=== PATIENT | female | born 1950 | race Caucasian/White ===

== ENCOUNTER 2016-09-29 12:00 | Emergency (ER) | payer OTHER ==
[~2016-09-29] VITALS: Ht 167.6 cm; Wt 100.0 kg
[~2016-09-29 12:00] MED LIST: ACET-749 PO; ADVIN25/60 INH; ALBU1AER9 INH; ARTIOIN OP; CLON0.5T3 PO; ESTR1CRE TOP; FAMO20TA11 PO; INSU100I2 SQ; IPRASOL4 INH; LEVO50TA6 PO; LEVO75TA5 PO; MRLP17 PO; MULT-506 PO; ONDA4TAB46 PO; OXGN; PHEN-876 PO; RSTOPS OP; SIME125C11 PO
[2016-09-29 12:10] VITALS: TEMP 36.6; Ht 167.6 cm; Wt 100.0 kg
[2016-09-29] MEDS ORDERED: RABE20TA5 PO (12:20)
[2016-09-29] MEDS ORDERED: SODIUM CHLORIDE 0.9% 1000ML 1,000 ML IV STA (12:27)
[2016-09-29] MEDS ORDERED: ONDANSETRON INJ 2 MG/ML 2 ML VIAL IV STA (12:27)
--- NOTE | 2016-09-29 12:39 | EMERGENCY ROOM VISIT NOTE ---
History Report prepared by Bhavna: Bob San Under the Supervision of: Dr. Rc Barron D.O. First contact with patient: 12:23 Chief Complaint: HEADACHE Stated Complaint: HEADACHE History of Present Illness The patient is a 66 year old female who presents to the Emergency Room with complaints of a persistent headache that started around a week ago. She complains of multiple other problems, including neck stiffness, neck pain, left shoulder pain, swollen eyes, nausea, bloody diarrhea, and left flank pain. She also complains of arm tingling, arm numbness, dizziness, shortness of breath, and coughing. The patient was in this hospital recently and it was found that she has a nodule in her stomach as well as a transverse colon tumor. She was scheduled to see Dr. Morris (GI) today but she could not drive due to her symptoms. The patient saw her primary care physician recently, and the patient says the physician was not worried about her symptoms. She is on pain medications everyday for chronic pain as well as for chronic numbness in both legs and feet. She has limited balance and she has chronic burning inside her ears. The patient has stenosis. She is diabetic and has asthma. The patient has a history of a hysterectomy. Source of History: patient Onset: A week ago Position: head Timing: other (persistent) Associated Symptoms: + SOB, + abdominal pain (left flank pain), + cough, + diarrhea, + hematochezia, + nausea, + neck pain (and neck stiffness), + numbness (arm numbness and chronic leg/foot numbness) Note: Associated symptoms: Arm tingling, dizziness. Review of Systems See HPI for pertinent positives & negatives. A total of 10 systems reviewed and were otherwise negative. Past Medical & Surgical Medical Problems: (1) Asthma (2) DM2 (diabetes mellitus, type 2) (3) GERD (gastroesophageal reflux disease) (4) Hypothyroidism (5) Left leg weakness (6) MVP (mitral valve prolapse) (7) Obesity (8) TAMMI (obstructive sleep apnea) (9) Stroke-like symptom (10) Trigeminal neuralgia Surgical Problems: (1) H/O cardiac catheterization (2) H/O hernia repair (3) History of carpal tunnel surgery (4) S/P hysterectomy Family History Diabetes mellitus SISTER FH: aneurysm FATHER FH: cancer MOTHER Heart disease FATHER MOTHER SISTER Hypertension BROTHER Stroke MOTHER Social History Smoking Status: Former Smoker Alcohol Use: none Drug Use: none Marital Status: single Housing Status: lives alone Occupation Status: retired Current/Historical Medications Scheduled Acetaminophen/Codeine (Tylenol W/Codeine #3), 1 TAB PO BID Albuterol (Proair Hfa), 2 PUFFS INH Q4HR PRN Artificial Tears Oph Oint (Lacri-Lube Sop Oph Oint), 0.25-0.5 INCH OP QID Fluticasone Prop/Salmeterol (Advair Diskus 250/50 60 Dose), 1 PUFF INH BID Insulin Lispro (Human) (Humalog Kwikpen), 15-20 UNITS SQ AC Levothyroxine Sodium (Levothyroxine Sodium), 1 TAB PO SuMoWeFrSa Levothyroxine Sodium (Levothyroxine Sodium), 1 TAB PO TuTh Multivitamin (Multivitamin), 1 TAB PO QPM Oxygen (Oxygen), 2 LITERS NA PRN Polyethylene Glycol (Miralax *), 17 GM PO QAM Rabeprazole Sodium (Aciphex), Unknown Dose PO DAILY Scheduled PRN Clonazepam (Klonopin), 1 TAB PO BID PRN for Pain Cyclosporine (Restasis Eye Drops), 1 DROP OP BID PRN for Estrogens, Conjugated Vaginal (Premarin), 0.5 GM TOP QAM PRN for PRN Ipratropium-Albuterol (Duoneb), 1 TREATMENT INH QID PRN for SOB/Wheezing Ondansetron Hcl (Zofran), 4 MG PO Q8H PRN for Nausea Phenazopyridine HCl (Pyridium), 200 MG PO TID PRN for PRN Simethicone (Simethicone), 125 MG PO QID PRN for gas Allergies Coded Allergies: Meloxicam (Verified Allergy, Severe, RASH/WHEEZING/ITCHING/ "FELT I COULDN 'T BREATH", 09/29/16) Niacin (Verified Allergy, Severe, "WHEEZING/RASH/RUSHED TO ER AND GIVEN SHOT", 09/29/16) Silicone (Verified Allergy, Severe, FACIAL SWELLING AND WHEEZING, 09/29/16) Doxycycline (Verified Allergy, Mild, N/V AND PAIN, 09/29/16) Latex (Verified Allergy, Mild, SLIGHT WHEEZING, 09/29/16) Adhesives (Verified Allergy, Unknown, BANDAIDS-RED RASH, 09/29/16) Duloxetine (Verified Adverse Reaction, Intermediate, JOINT PAIN AND ELEVATED BLOOD SUGAR, 09/29/16) Tetracycline (Verified Adverse Reaction, Intermediate, VOMIT/PASS OUT-PT DENIES, 09/29/16) Aspirin (Verified Adverse Reaction, Mild, nausea, vomitting, abd pain, 09/29) Buspirone (Verified Adverse Reaction, Mild, N/V/PAIN-PT DENIES, 09/29/16) NSAIDs (Verified Adverse Reaction, Mild, GI UPSET/VOMITING, 09/29/16) Pregabalin (Verified Adverse Reaction, Mild, PAIN AND NAUSEA, 09/29/16) Rosuvastatin (Verified Adverse Reaction, Mild, JOINT PAIN VOMIT, 09/29/16) Simvastatin (Verified Adverse Reaction, Mild, JOINT PAIN, 09/29/16) Statins (Verified Adverse Reaction, Unknown, MYALGIA AND JOINT PAINS, ) Physical Exam Vital Signs Date Time Temp Pulse Resp B/P Pulse Ox O2 Delivery O2 Flow Rate FiO2 09/29/16 16:03 76 20 138/78 99 Room Air 09/29/16 14:10 76 142/77 95 09/29/16 13:30 20 09/29/16 12:57 77 09/29/16 12:29 71 152/87 98 09/29/16 12:10 36.6 75 18 139/72 96 Room Air Physical Exam GENERAL: Patient is awake, alert, and in no acute distress. Patient is resting comfortably and showing no signs of anxiety EYES: The conjunctivae are clear. The pupils are round and reactive. EARS, NOSE, MOUTH AND THROAT: The nose is without any evidence of any deformity. Mucous membranes are moist tongue is midline NECK: The neck is nontender and supple. RESPIRATORY: Normal respiratory effort is noted there is no evidence of wheezing rhonchi or rales CARDIOVASCULAR: Regular rate and rhythm noted there no murmurs rubs or gallops normal S1 normal S2 GASTROINTESTINAL: The abdomen is soft. Bowel sounds are present in all quadrants. Abdomen is nontender MUSCULOSKELETAL/EXTREMITIES: There is no evidence of gross deformity full range of motion is noted in the hips and shoulders SKIN: There is no obvious evidence of any rash. There are no petechiae, pallor or cyanosis noted. NEUROLOGIC: Patient is awake alert and oriented x3 strength is symmetric patellar reflexes are 2+ bilaterally Medical Decision & Procedures ER Provider Diagnostic Interpretation: X ray results and stated below per my interpretation and radiology interpretation. Other radiology results per my review and radiologist interpretation: CT HEAD WITHOUT CONTRAST (CT) CLINICAL HISTORY: GANDHI COMPARISON STUDY: 05/14/2016 TECHNIQUE: Axial CT of the brain is performed from the vertex to the skull base. IV contrast was not administered for this examination. CT DOSE: 537.48 mGy.cm FINDINGS: No intra or extra-axial mass lesions are visualized. There is no CT evidence of acute cortical infarction. There is no evidence of midline shift. There is no acute hemorrhage. No calvarial fractures are visualized. There are minimal white matter hypodensities likely on a small vessel basis. There is no evidence of pathologic ventricular dilatation. There is no evidence of acute sinusitis IMPRESSION: No acute intracranial findings Electronically signed by: Mateo Gonzalez M.D. 09/29/2016 1:02 PM PA CHEST RADIOGRAPH AND UPRIGHT AND SUPINE AP RADIOGRAPHS OF THE ABDOMEN CLINICAL HISTORY: Abdominal pain. COMPARISON STUDY: Chest radiograph May 14, [address] of the abdomen and pelvis July 24, 2016 FINDINGS: Lung lungs are normal. Lungs are clear. There is no pneumothorax or pleural effusion. Cardiac size is normal. Mediastinal contours are normal. There is no free air. Bowel gas pattern is normal. IMPRESSION: 1. No free air or evidence of bowel obstruction. 2. No acute cardiopulmonary findings. Electronically signed by: Alec Pratt M.D. 09/29/2016 1:52 PM Laboratory Results 09/29/16 12:44 Red Blood Count 4.40, Mean Corpuscular Volume 94.3, Mean Corpuscular Hemoglobin 31.4, Mean Corpuscular Hemoglobin Concent 33.3, Mean Platelet Volume 10.4, Neutrophils (%) (Auto) 67.0, Lymphocytes (%) (Auto) 24.9, Monocytes (%) (Auto) 5.8, Eosinophils (%) (Auto) 1.6, Basophils (%) (Auto) 0.6, Neutrophils # (Auto) 4.50, Lymphocytes # (Auto) 1.67, Monocytes # (Auto) 0.39, Eosinophils # (Auto) 0.11, Basophils # (Auto) 0.04 09/29/16 12:44 Test 09/29/16 12:44 09/29/16 14:12 White Blood Count 6.72 K/uL (4.8-10.8) Red Blood Count 4.40 M/uL (4.2-5.4) Hemoglobin 13.8 g/dL (12.0-16.0) Hematocrit 41.5 % (37-47) Mean Corpuscular Volume 94.3 fL (80-100) Mean Corpuscular Hemoglobin 31.4 pg (25-34) Mean Corpuscular Hemoglobin Concent 33.3 g/dl (32-36) Platelet Count 230 K/uL (130-400) Mean Platelet Volume 10.4 fL (7.4-10.4) Neutrophils (%) (Auto) 67.0 % Lymphocytes (%) (Auto) 24.9 % Monocytes (%) (Auto) 5.8 % Eosinophils (%) (Auto) 1.6 % Basophils (%) (Auto) 0.6 % Neutrophils # (Auto) 4.50 K/uL (1.4-6.5) Lymphocytes # (Auto) 1.67 K/uL (1.2-3.4) Monocytes # (Auto) 0.39 K/uL (0.11-0.59) Eosinophils # (Auto) 0.11 K/uL (0-0.5) Basophils # (Auto) 0.04 K/uL (0-0.2) RDW Standard Deviation 48.1 fL (36.4-46.3) RDW Coefficient of Variation 13.9 % (11.5-14.5) Immature Granulocyte % (Auto) 0.1 % Immature Granulocyte # (Auto) 0.01 K/uL (0.00-0.02) Erythrocyte Sedimentation Rate 18 mm/hr (0-21) Prothrombin Time 11.1 SECONDS (9.0-12.0) Prothromb Time International Ratio 1.0 (0.9-1.1) Activated Partial Thromboplast Time 27.8 SECONDS (21.0-31.0) Partial Thromboplastin Ratio 1.1 Anion Gap 9.0 mmol/L (3-11) Est Creatinine Clear Calc Drug Dose 98.7 ml/min Estimated GFR () 105.9 Estimated GFR (Non- 91.4 BUN/Creatinine Ratio 10.8 (10-20) Calcium Level 8.9 mg/dl (8.5-10.1) Total Bilirubin 0.4 mg/dl (0.2-1) Direct Bilirubin < 0.1 mg/dl (0-0.2) Aspartate Amino Transf (AST/SGOT) 15 U/L (15-37) Alanine Aminotransferase (ALT/SGPT) 17 U/L (12-78) Alkaline Phosphatase 55 U/L (45-117) Total Creatine Kinase 53 U/L (26-192) Creatine Kinase MB < 0.5 ng/ml (0.5-3.6) Creatine Kinase MB Ratio (0-3.0) Troponin I < 0.015 ng/ml (0-0.045) C-Reactive Protein 0.77 mg/dl (0-0.29) Total Protein 6.6 gm/dl (6.4-8.2) Albumin 3.1 gm/dl (3.4-5.0) Lipase 188 U/L (73-393) Influenza Type A Antigen Neg for Influ A (NEG) Influenza Type B Antigen Neg for Influ B (NEG) Urine Color YELLOW Urine Appearance CLEAR (CLEAR) Urine pH 5.5 (4.5-7.5) Urine Specific [place] 1.000 (1.000-1.030) Urine Protein NEG (NEG) Urine Glucose (UA) NEG (NEG) Urine Ketones NEG (NEG) Urine Occult Blood NEG (NEG) Urine Nitrite NEG (NEG) Urine Bilirubin NEG (NEG) Urine Urobilinogen NEG (NEG) Urine Leukocyte Esterase NEG (NEG) Laboratory results per my review. Medications Administered Medications (Trade) Dose Ordered Sig/Tracy Route Start Time Stop Time Status Last Admin Dose Admin Sodium Chloride (Nss 1000ml) 1,000 ml @ 999 mls/hr Q1H1M STAT IV 09/29/16 12:27 09/29/16 13:27 DC 09/29/16 13:29 999 MLS/HR Ondansetron HCl (Zofran Inj) 4 mg NOW STAT IV 09/29/16 12:27 09/29/16 12:29 DC 09/29/16 13:30 4 MG ECG Indication: other (headache) Rate (beats per minute): 70 Rhythm: normal sinus Findings: 1st degree AV block, no ectopy, other (no acute ST segment abnormalities) Change: no significant change (from July 24 2016) ED Course 1225: The patient was evaluated in room B12B. A complete history and physical examination were performed. 1227: Ordered Zofran Inj 4 mg IV, NSS 1000 ml @ 999 mls/hr IV. 1539: I reevaluated the patient and she is resting comfortably. The patient verbally expressed agreement and understanding of the treatment plan. The patient will be discharged. Medical Decision Headache: Intracranial hemorrhage, intracranial mass, migraine headache, tension headache , sinusitis, meningitis Nursing notes reviewed. The patient is a 66-year-old female who presented to the emergency department for an evaluation. The patient had multiple complaints including headache and difficulty breathing. She also had flulike symptoms but also complained of abdominal pain chest pain and difficulty breathing. It was very difficult to ascertain which complaints were new and which complaints were old. The patient was treated with IV fluids and antiemetics in the emergency department. I discussed the patient's laboratory and radiographic studies with her. No definite cause for the patient's complaints could be found. She was encouraged to rest and avoid any strenuous activity. She was also encouraged to continue all medications as prescribed. She was also encouraged to follow-up with her primary care physician as it is possible for reevaluation but return to the emergency department immediately if symptoms change worsen or the need arises. The patient was able to ambulate prior to discharge. Impression Primary Impression: Headache Additional Impression: Abdominal pain Scribe Attestation The scribe's documentation has been prepared under my direction and personally reviewed by me in its entirety. I confirm that the note above accurately reflects all work, treatment, procedures, and medical decision making performed by me. Departure Information Dispostion Home / Self-Care Referrals Gary Ba MD (PCP) Forms HOME CARE DOCUMENTATION FORM, IMPORTANT VISIT INFORMATION Patient Instructions A Signature Page, Headache Pain, My [facility] Additional Instructions Rest and avoid any strenuous activity. Continue using all of your medications as prescribed. Call your family to schedule a follow-up appointment versus possible. Return to the emergency department immediately if symptoms change worsen or if the need arises.
[2016-09-29 12:55] LABS: BASO % 0.6 %; BASO ABS # 0.04 K/uL (0-0.2); COMPLETE YES; EOS % 1.6 %; HEMATOCRIT 41.5 % (37-47); IG% 0.1 %; LYMPH % 24.9 %; LYMPH ABS # 1.67 K/uL (1.2-3.4); MEAN CELL VOLUME 94.3 fL (80-100); MEAN CORPUSCULAR HEMOGLOBIN 31.4 pg (25-34); MEAN CORPUSCULAR HGB CONC 33.3 g/dl (32-36); MEAN PLATELET VOLUME 10.4 fL (7.4-10.4); MONO % 5.8 %; PLATELET COUNT 230 K/uL (130-400); WHITE BLOOD COUNT 6.72 K/uL (4.8-10.8)
--- NOTE | 2016-09-29 13:04 | DIAGNOSTIC IMAGING REPORT ---
CT HEAD WITHOUT CONTRAST (CT) CLINICAL HISTORY: GANDHI COMPARISON STUDY: 05/14/2016 TECHNIQUE: Axial CT of the brain is performed from the vertex to the skull base. IV contrast was not administered for this examination. CT DOSE: 537.48 mGy.cm FINDINGS: No intra or extra-axial mass lesions are visualized. There is no CT evidence of acute cortical infarction. There is no evidence of midline shift. There is no acute hemorrhage. No calvarial fractures are visualized. There are minimal white matter hypodensities likely on a small vessel basis. There is no evidence of pathologic ventricular dilatation. There is no evidence of acute sinusitis IMPRESSION: No acute intracranial findings Electronically signed by: Mateo Gonzalez M.D. 09/29/2016 1:02 PM
[2016-09-29 13:07] LABS: PARTIAL THROMBOPLASTIN RATIO 1.1; PROTHROMBIN TIME (PATIENT) 11.1 SECONDS (9.0-12.0)
[2016-09-29 13:15] LABS: ALT/SGPT 17 U/L (12-78); AST/SGOT 15 U/L (15-37); BLOOD UREA NITROGEN 7 mg/dl (7-18); BUN/CREATININE RATIO 10.8 (10-20); C-REACTIVE PROTEIN 0.77 mg/dl (0-0.29); CALCIUM 8.9 mg/dl (8.5-10.1); CARBON DIOXIDE 27 mmol/L (21-32); CHLORIDE 108 mmol/L (98-107); CREATININE 0.66 mg/dl (0.60-1.20); GLUCOSE 135 mg/dl (70-99); POTASSIUM 3.5 mmol/L (3.5-5.1); SODIUM 144 mmol/L (136-145)
[2016-09-29 13:18] LABS: ALKALINE PHOSPHATASE 55 U/L (45-117)
--- NOTE | 2016-09-29 13:54 | DIAGNOSTIC IMAGING REPORT ---
PA CHEST RADIOGRAPH AND UPRIGHT AND SUPINE AP RADIOGRAPHS OF THE ABDOMEN CLINICAL HISTORY: Abdominal pain. COMPARISON STUDY: Chest radiograph May 14, [address] of the abdomen and pelvis July 24, 2016 FINDINGS: Lung lungs are normal. Lungs are clear. There is no pneumothorax or pleural effusion. Cardiac size is normal. Mediastinal contours are normal. There is no free air. Bowel gas pattern is normal. IMPRESSION: 1. No free air or evidence of bowel obstruction. 2. No acute cardiopulmonary findings. Electronically signed by: Alec Pratt M.D. 09/29/2016 1:52 PM
[2016-09-29 14:33] LABS: URINE APPEARANCE CLEAR (CLEAR); URINE BILIRUBIN NEG (NEG); URINE COLOR YELLOW; URINE NITRITE NEG (NEG); URINE PH 5.5 (4.5-7.5); UROBILINOGEN NEG (NEG)
[2016-09-29 14:40] LABS: MANUAL MICROSCOPIC REQUIRED? NO; REVIEW REQ? NO
[2016-09-29 16:03] VITALS: BP 138/78; PULSE 76; O2SAT 99
[2017-02-02] MEDS ORDERED: TPRSR25 PO (16:19)
[2017-02-02] MEDS ORDERED: ACET-749 PO (16:19)
[2017-02-25] MEDS ORDERED: ACET300T2 PO (13:08)
[2017-02-25] MEDS ORDERED: METO25TA56 PO (13:08)
[2017-02-25] MEDS ORDERED: LIDOCAINE OINT TOP (13:23)
== END 2016-09-29 16:30 | disposition home or self-care (01) ==
LOC: EDBD 12:00 → C.EDB 12:01
DX: R51 Headache (principal); R10.9 Unspecified abdominal pain; R06.02 Shortness of breath; R20.0 Anesthesia of skin; K92.1 Melena; E11.9 Type 2 diabetes mellitus without complications; K21.9 Gastro-esophageal reflux disease without esophagitis; J45.909 Unspecified asthma, uncomplicated; E03.9 Hypothyroidism, unspecified; Z83.3 Family history of diabetes mellitus; Z82.49 Family history of ischemic heart disease and other diseases of the circulatory system; Z82.3 Family history of stroke; Z79.4 Long term (current) use of insulin; Z79.899 Other long term (current) drug therapy

== ENCOUNTER → 2016-12-21 | Outpatient (CLI) | payer OTHER ==
[~2016-12-21] MED LIST changes: +ACET300T2 PO; +ALBINSX NEB; +ALBU18002 INH; +CYCL0.052 OP; -FAMO20TA11 PO; +LIDOCAINE OINT TOP; +METO25TA56 PO; +ONDA4TAB9 PO; +PRMVC TOP; +RABE20TA5 PO; +SIME1CAP28 PO; +TPRSR25 PO; +[UNRECOGNIZED DRUG - REMARK] OPB
--- NOTE | 2016-12-21 10:00 | DIAGNOSTIC IMAGING REPORT ---
ULTRASOUND RIGHT UPPER QUADRANT ABDOMEN CLINICAL HISTORY: Diarrhea. Left upper quadrant abdominal pain. COMPARISON STUDY: Abdominal CT dated 07/24/2016. TECHNIQUE: Real-time, grayscale, and color flow sonography of the right upper quadrant of the abdomen was performed. Images are reviewed in the transverse and longitudinal planes. FINDINGS: Liver: The liver is mildly enlarged and demonstrates there is trace increased echotexture consistent with severe hepatic steatosis. Note that this degrades acoustic penetration of the liver. There is no intrahepatic biliary ductal dilatation. The main portal vein is patent. Gallbladder: The gallbladder is normal in appearance. No gallstones are identified. There is no gallbladder wall thickening or pericholecystic fluid. A sonographic Ramey's sign is reportedly absent. The common bile duct measures up to 0.5 cm in diameter. Pancreas: Visualized portions of the pancreatic head and body are normal in appearance. Spleen: The spleen is normal in size and echotexture, measuring 9.9 cm in length. Right kidney: Survey images of the right kidney demonstrate normal size and echotexture. There is no hydronephrosis. Ascites: None. Left upper quadrant: No sonographic abnormality is identified in the left upper quadrant at the indicated site of interest. IMPRESSION: 1. No acute sonographic abnormality is identified in the right upper quadrant. No gallstones are seen. 2. The spleen is normal in appearance. 3. No abnormality is identified in the left upper quadrant at the indicated site of interest. 4. Hepatomegaly and severe hepatic steatosis. Electronically signed by: Phil Mcneil M.D. 12/21/2016 9:58 AM Dictated Date/Time: 12/21/2016 9:56 AM
== END | disposition home or self-care (01) ==
LOC: C.ULTRBC 09:25
PROVIDERS: ATTEND Internal Medicine
DX: R19.7 Diarrhea, unspecified (principal); R10.12 Left upper quadrant pain; R16.0 Hepatomegaly, not elsewhere classified; K76.0 Fatty (change of) liver, not elsewhere classified

== ENCOUNTER 2017-01-31 11:39 | Observation (INO) | payer OTHER ==
[~2017-01-31] VITALS: Ht 165.1 cm; Wt 102.4 kg
[~2017-01-31 11:39] MED LIST changes: -ACET300T2 PO; -ALBINSX NEB; -ALBU18002 INH; -CYCL0.052 OP; -LIDOCAINE OINT TOP; -METO25TA56 PO; -ONDA4TAB46 PO; -ONDA4TAB9 PO; -PRMVC TOP; -SIME1CAP28 PO; -TPRSR25 PO; -[UNRECOGNIZED DRUG - REMARK] OPB
[2017-01-31] MEDS ORDERED: ONDA4TAB9 PO (12:21)
[2017-01-31] MEDS ORDERED: PRMVC TOP (12:21)
[2017-01-31] MEDS ORDERED: SIME1CAP28 PO (12:21)
[2017-01-31] MEDS ORDERED: ALBU18002 INH (12:21)
[2017-01-31] MEDS ORDERED: [UNRECOGNIZED DRUG - REMARK] OPB (12:21)
[2017-01-31] MEDS ORDERED: CYCL0.052 OP (12:21)
[2017-01-31] MEDS ORDERED: ALBINSX NEB (12:21)
[2017-01-31] MEDS ORDERED: MRLP17 PO (12:21)
[2017-01-31] MEDS ORDERED: NITROGLYCERIN OINT 2% 1GM PACKET EXT ONE (12:45)
[2017-01-31 12:46] LABS: BASO % 0.5 %; BASO ABS # 0.04 K/uL (0-0.2); COMPLETE YES; EOS % 1.4 %; HEMATOCRIT 44.6 % (37-47); IG% 0.2 %; LYMPH % 22.3 %; LYMPH ABS # 1.89 K/uL (1.2-3.4); MEAN CELL VOLUME 96.3 fL (80-100); MEAN CORPUSCULAR HEMOGLOBIN 30.2 pg (25-34); MEAN CORPUSCULAR HGB CONC 31.4 g/dl (32-36); MEAN PLATELET VOLUME 10.5 fL (7.4-10.4); MONO % 5.3 %; NEUT % 70.3 %; PLATELET COUNT 268 K/uL (130-400); RED BLOOD COUNT 4.63 M/uL (4.2-5.4); WHITE BLOOD COUNT 8.46 K/uL (4.8-10.8)
--- NOTE | 2017-01-31 12:48 | DIAGNOSTIC IMAGING REPORT ---
CHEST ONE VIEW PORTABLE CLINICAL HISTORY: Left arm weakness. Possible stroke. COMPARISON STUDY: 09/29/2016 FINDINGS: The cardiac and mediastinal contours are normal. There is no evidence of focal pulmonary consolidation. There is no evidence of failure. No pleural effusions are visualized.[ IMPRESSION: No active disease in the chest. Electronically signed by: Mateo Gonzalez M.D. 01/31/2017 12:47 PM Dictated Date/Time: 01/31/2017 12:46 PM
[2017-01-31] MEDS: SODIUM CHLORIDE 0.9% 1000ML 1,000 ML IV SCH (12:49)
[2017-01-31] MEDS ORDERED: MoRPHine SULFATE 2 MG/ML CARP IV STA ×2 (12:50→13:28)
[2017-01-31] MEDS ORDERED: ONDANSETRON INJ 2 MG/ML 2 ML VIAL IV STA (12:50)
[2017-01-31 12:56] LABS: PROTHROMBIN TIME (PATIENT) 10.4 SECONDS (9.0-12.0)
[2017-01-31 13:00] LABS: BLOOD UREA NITROGEN 10 mg/dl (7-18); BUN/CREATININE RATIO 13.1 (10-20); CALCIUM 9.3 mg/dl (8.5-10.1); CARBON DIOXIDE 31 mmol/L (21-32); CHLORIDE 108 mmol/L (98-107); CREATININE 0.75 mg/dl (0.60-1.20); GLUCOSE 162 mg/dl (70-99); POTASSIUM 3.6 mmol/L (3.5-5.1); SODIUM 145 mmol/L (136-145)
--- NOTE | 2017-01-31 13:21 | DIAGNOSTIC IMAGING REPORT ---
CT HEAD WITHOUT CONTRAST (CT) CLINICAL HISTORY: Stroke COMPARISON STUDY: 09/29/2016 TECHNIQUE: Axial CT of the brain is performed from the vertex to the skull base. IV contrast was not administered for this examination. CT DOSE: 720.23 mGy.cm FINDINGS: No intra or extra-axial mass lesions are visualized. There is no CT evidence of acute cortical infarction. There is no evidence of midline shift. There is no acute hemorrhage. No calvarial fractures are visualized. There are patchy white matter hypodensities likely on a small vessel basis. There is no evidence of pathologic ventricular dilatation. There is no evidence of acute sinusitis IMPRESSION: No acute intracranial findings Electronically signed by: Mateo Gonzalez M.D. 01/31/2017 1:20 PM Dictated Date/Time: 01/31/2017 1:19 PM
[2017-01-31] MEDS ORDERED: NITROGLYCERIN 0.4 MG SL PER TAB CHARGE SL PRN (13:45)
[2017-01-31] MEDS ORDERED: SIMETHICONE 80 MG CHEW PO PRN (13:45)
[2017-01-31] MEDS ORDERED: PREMARIN VAG CRM 14 APPLN/30 GM TUBE TOP PRN (13:45)
[2017-01-31] MEDS ORDERED: GLUCOSE 40% GEL 15 GM TUBE PO PRN (13:45)
[2017-01-31] MEDS ORDERED: GLUCOSE 10 TABS/TUBE PO PRN (13:45)
[2017-01-31] MEDS ORDERED: POLYETHYLENE (MIRALAX) 17 GM PACK PO PRN (13:45)
[2017-01-31] MEDS ORDERED: ALBUT/IPRATROP 3MG/0.5MG NEB 3 ML VIAL INH PRN (13:45)
[2017-01-31] MEDS ORDERED: PHENAZOPYRIDINE HCL 200 MG TAB PO PRN (13:45)
[2017-01-31] MEDS ORDERED: MAGNESIUM HYDROXIDE SUSP 30 ML UDC PO PRN (13:45)
[2017-01-31] MEDS ORDERED: ARTIFICIAL TEARS OP OINT 3.5 GM TUBE OP PRN (13:45)
[2017-01-31] MEDS ORDERED: ACETAMINOPHEN 325 MG TAB PO PRN (13:45)
[2017-01-31] MEDS ORDERED: GLUCAGON FOR INJ 1 MG VIAL SQ PRN (13:45)
[2017-01-31] MEDS ORDERED: DEXTROSE 50% 50 ML SYR IV PRN (13:45)
[2017-01-31] MEDS ORDERED: ALBUTEROL HFA 8 GM INHALER INH PRN (13:45)
[2017-01-31] MEDS ORDERED: ALBUTEROL 0.083% NEBU SOLN 3 ML VIAL INH PRN (13:45)
--- NOTE | 2017-01-31 14:25 | History and Physical ---
History & Physical Date & Time of Service: January 31, 2017 at 14:09 Chief Complaint: Chest Pain/Nausea/Weakness/Cough Primary Care Physician: Gary Ba MD History of Present Illness Source: patient The patient is a 67 year old Female who presents to the Emergency Room with complaints of constant left sided chest pain beginning a few days ago. Patient has multiple complaints and a poor historian. Patient c/o left sided chest pain, radiating to left arm, intermittent, no association with exertion, but worse with activity. At times she says it is burning in nature, the second time she describes it as pressure like. C/o SOB exertional x few days which is new per her. She mentions the SOB specifically was worse when she was leaning forward today. It got better when she stood up. She has multiple vague complaints of numbness on face, occasionally radiating down to arm, bilateral lower extremity weakness on and off for which she has had MRI spine in past. She c/o ringing in ears, burning in ears. C/o abdominal pain on and off, diarrhea. Uses oxygen on and off at home , at night. Denies any fever, chills, cough, nausea, vomiting, leg swelling. No bladder/ bowel incontinence. In ED, BP is high in 170s, saturating well on RA, pulse- 70s. EKG- no acute changes, first set of troponin is negative. CXR- no acute findings. CT head- no acute findings. Will admit her for chest pain, rule out ACS. Past Medical/Surgical History Medical Problems: (1) Asthma Status: Chronic (2) DM2 (diabetes mellitus, type 2) Status: Chronic (3) GERD (gastroesophageal reflux disease) Status: Chronic (4) Hypothyroidism Status: Chronic (5) MVP (mitral valve prolapse) Status: Chronic (6) Obesity Status: Chronic (7) TAMMI (obstructive sleep apnea) Status: Chronic (8) Trigeminal neuralgia Status: Chronic Surgical Problems: (1) H/O cardiac catheterization Permanent Comment: 2009, normal coronaries Status: Chronic (2) H/O hernia repair Status: Chronic (3) History of carpal tunnel surgery Status: Chronic (4) S/P hysterectomy Status: Chronic Family History Diabetes mellitus SISTER FH: aneurysm FATHER FH: cancer MOTHER Heart disease FATHER MOTHER SISTER Hypertension BROTHER Stroke MOTHER Social History Smoking Status: Former Smoker Drug Use: none Marital Status: single Housing status: lives alone Occupational Status: retired Immunizations History of Influenza Vaccine: Yes Influenza Vaccine Date: Jul 01, 2009 History of Tetanus Vaccine?: Yes History of Pneumococcal: Yes Pneumococcal Date: Oct 01, 2009 History of Hepatitis B Vaccine: Yes Hepatitis Immunization Date: Jul 23, 1985 Multi-Drug Resistant Organisms History of MDRO: No Allergies Coded Allergies: Meloxicam (Verified Allergy, Severe, RASH/WHEEZING/ITCHING/ "FELT I COULDN 'T BREATH", 01/31/17) Niacin (Verified Allergy, Severe, "WHEEZING/RASH/RUSHED TO ER AND GIVEN SHOT", 01/31/17) Silicone (Verified Allergy, Severe, FACIAL SWELLING AND WHEEZING, 01/31/17) Doxycycline (Verified Allergy, Mild, N/V AND PAIN, 01/31/17) Latex (Verified Allergy, Mild, SLIGHT WHEEZING, 01/31/17) Adhesives (Verified Allergy, Unknown, BANDAIDS-RED RASH, 01/31/17) Duloxetine (Verified Adverse Reaction, Intermediate, JOINT PAIN AND ELEVATED BLOOD SUGAR, 01/31/17) Tetracycline (Verified Adverse Reaction, Intermediate, VOMIT/PASS OUT-PT DENIES, 01/31/17) Aspirin (Verified Adverse Reaction, Mild, nausea, vomitting, abd pain, 01/31) Buspirone (Verified Adverse Reaction, Mild, N/V/PAIN-PT DENIES, 01/31/17) NSAIDs (Verified Adverse Reaction, Mild, GI UPSET/VOMITING, 01/31/17) Pregabalin (Verified Adverse Reaction, Mild, PAIN AND NAUSEA, 01/31/17) Rosuvastatin (Verified Adverse Reaction, Mild, JOINT PAIN VOMIT, 01/31/17) Simvastatin (Verified Adverse Reaction, Mild, JOINT PAIN, 01/31/17) Statins (Verified Adverse Reaction, Unknown, MYALGIA AND JOINT PAINS, ) Home Medications Scheduled Acetaminophen/Codeine (Tylenol W/Codeine #3), 1 TAB PO BID Artificial Tears Oph Oint (Lacri-Lube Sop Oph Oint), 0.25-0.5 INCH OP HS Fluticasone Prop/Salmeterol (Advair Diskus 250/50 60 Dose), 1 PUFF INH BID Insulin Lispro (Human) (Humalog Kwikpen), 24 UNITS SQ AC Levothyroxine Sodium (Levothyroxine Sodium), 1 TAB PO QAM Multivitamin (Multivitamin), 1 TAB PO QPM Oxygen (Oxygen), 2 LITERS NA PRN Polyethylene (Miralax), 17 GM PO QAM Scheduled PRN Albuterol Sulf (Albuterol Sulfate), 1 VIAL NEB Q6 PRN for SOB/Wheezing Albuterol Sulfate (Proair Respiclick), 2 PUFFS INH Q4 PRN for SOB/Wheezing Clonazepam (Klonopin), 1 TAB PO BID PRN for Pain Cyclosporine (Ophth) (Restasis), 1 DROP OP BID PRN for PRN Estrogens, Conjugated (Premarin), 0.5 GM TOP QAM PRN for PRN Ipratropium-Albuterol (Duoneb), 1 TREATMENT INH QID PRN for SOB/Wheezing Ondansetron (Ondansetron HCl), 4 MG PO Q6 PRN for Nausea Phenazopyridine HCl (Pyridium), 200 MG PO TID PRN for PRN Simethicone (Simethicone), 125 MG PO QID PRN for GAS [Unknown Eyedrops], 1 DROP OPB 2-3 TIMES PRN for BURNING EYES Review of Systems Constitutional: No chills, No fatigue, No fever Eyes: No eye pain, No worsening of vision ENT: No hearing loss, No nasal symptoms Respiratory: + dyspnea on exertion, No cough, No hemoptysis, No sputum, No wheezing Cardiovascular: + chest pain, No edema, No orthopnea, No palpitations Abdomen: + diarrhea, + pain, No GI bleeding, No nausea, No vomiting Genitourinary - Female: No dysuria, No urinary frequency, No urinary urgency Neurologic: No memory loss, No paralysis Endocrine: + fatigue Hematologic / Lymphatic: No abnormal bleeding/bruising Integumentary: No rash Physical Exam Vital Signs Date Time Temp Pulse Resp B/P Pulse Ox O2 Delivery O2 Flow Rate FiO2 01/31/17 13:59 86 01/31/17 13:31 84 16 172/114 97 Room Air 01/31/17 12:56 88 19 157/93 97 Room Air 01/31/17 12:45 97 Room Air 01/31/17 12:17 86 01/31/17 11:48 97 Room Air 01/31/17 11:48 36.6 86 19 168/99 95 Room Air General Appearance: no apparent distress, + obese Head: normocephalic, atraumatic Eyes: PERRL ENT: hearing grossly normal Neck: supple, no JVD Respiratory/Chest: chest non-tender, lungs clear, normal breath sounds, no respiratory distress, no accessory muscle use, + pertinent finding ( reproducible chest tenderness) Cardiovascular: regular rate, rhythm, no edema, no JVD, no murmur Abdomen/GI: normal bowel sounds, non tender, soft Extremities/Musculoskelatal: no calf tenderness, no pedal edema Neurologic/Psych: aerographer II-XII nml as tested, no motor/sensory deficits, alert, oriented x 3, + pertinent finding (sensation normal in all extremities) Skin: normal color Diagnostics Laboratory Results Results Past 24 Hours Test 01/31/17 11:55 01/31/17 13:21 Range/Units White Blood Count 8.46 4.8-10.8 K/uL Red Blood Count 4.63 4.2-5.4 M/uL Hemoglobin 14.0 12.0-16.0 g/dL Hematocrit 44.6 37-47 % Mean Corpuscular Volume 96.3 80-100 fL Mean Corpuscular Hemoglobin 30.2 25-34 pg Mean Corpuscular Hemoglobin Concent 31.4 32-36 g/dl Platelet Count 268 130-400 K/uL Mean Platelet Volume 10.5 7.4-10.4 fL Neutrophils (%) (Auto) 70.3 % Lymphocytes (%) (Auto) 22.3 % Monocytes (%) (Auto) 5.3 % Eosinophils (%) (Auto) 1.4 % Basophils (%) (Auto) 0.5 % Neutrophils # (Auto) 5.94 1.4-6.5 K/uL Lymphocytes # (Auto) 1.89 1.2-3.4 K/uL Monocytes # (Auto) 0.45 0.11-0.59 K/uL Eosinophils # (Auto) 0.12 0-0.5 K/uL Basophils # (Auto) 0.04 0-0.2 K/uL RDW Standard Deviation 48.1 36.4-46.3 fL RDW Coefficient of Variation 13.5 11.5-14.5 % Immature Granulocyte % (Auto) 0.2 % Immature Granulocyte # (Auto) 0.02 0.00-0.02 K/uL Prothrombin Time 10.4 9.0-12.0 SECONDS Prothromb Time International Ratio 1.0 0.9-1.1 Activated Partial Thromboplast Time 25.9 21.0-31.0 SECONDS Partial Thromboplastin Ratio 1.0 Sodium Level 145 136-145 mmol/L Potassium Level 3.6 3.5-5.1 mmol/L Chloride Level 108 98-107 mmol/L Carbon Dioxide Level 31 21-32 mmol/L Anion Gap 6.0 3-11 mmol/L Blood Urea Nitrogen 10 7-18 mg/dl Creatinine 0.75 0.60-1.20 mg/dl Est Creatinine Clear Calc Drug Dose 88.4 ml/min Estimated GFR () 94.9 Estimated GFR (Non- 81.9 BUN/Creatinine Ratio 13.1 10-20 Random Glucose 162 70-99 mg/dl Calcium Level 9.3 8.5-10.1 mg/dl Total Creatine Kinase 64 26-192 U/L Creatine Kinase MB < 0.5 0.5-3.6 ng/ml Creatine Kinase MB Ratio 0-3.0 Troponin I < 0.015 0-0.045 ng/ml Chemistry Specimen Hemolysis Bedside Prothrombin Time INR 1.1 0.9-1.1 Diagnostic Radiology EKG reviewed- NSR, No acute ST/T changes noted CXR- No acute findings noted Impression Assessment and Plan CHEST PAIN, ATYPICAL Rule out ACS. Does have reproducible chest tenderness, vague complaints - changes her story and symptom characteristics on and off. Risk factors: DM, HTN, Obesity -EKG- no acute ischemic changes, Troponin x 1 negative, CXR- no acute findings, Saturating well on RA -Troponin x 3, EKG in AM, Stress echocardiogram in AM if troponin x 2 negative, Lipid panel , HBA1C in AM for risk stratification -Patient is allergic to ASA, Statins. MULTIPLE VAGUE COMPLAINTS Patient c/o numbness on face, arm which is intermittent, ear ringing/burning, lower extremity weakness, abdominal pain- intermittent, diarrhea, back pain. On basis of detailed H & P, Physical exam and neurological exam- no focal deficits found. Will avoid further testing as symptoms are vague with no concerning objective findings or positive test results including imaging. -Anxiety could be contributing- on clonazapam BID at home- to be continued -Monitor while in hospital DM-2 -On basal insulin at home- continue -ISS, Accuchecks, HBA1C ordered HTN- Does not take any medications at home -Will add low dose amlodipine 5 mg as she mentions it has been high in past too and presenting with BP 170/120s -Monitor DVT PROPHYLAXIS Moderate risk- Lovenox SQ GI PROPHYLAXIS Protonix daily FULL CODE per patient, but no prolonged ventilation DISPOSITION Observation telemetry Level of Care Telemetry Resuscitation Status FULL RESUSCITATION VTE Prophylaxis VTE Risk Assessment Done? Y/N: Yes Risk Level: Moderate Given or contraindicated: Enoxaparin (Lovenox)SQ
[2017-01-31] MEDS ORDERED: IV FLUIDS COMPLETED PRN (14:30)
[2017-01-31 15:08] VITALS: BP 148/94; PULSE 71; TEMP 36.9; O2SAT 97; Ht 165.1 cm; Wt 102.4 kg
[2017-01-31 16:00] VITALS: O2SAT 99
[2017-01-31] MEDS: ENOXAPARIN 40 MG/0.4 ML SYR SC SCH (16:00)
[2017-01-31] MEDS ORDERED: INSULIN ASPART 100 UNITS/ML 3 ML PEN SQ SCH (16:00)
[2017-01-31] MEDS: INSULIN ASPART 100 UNITS/ML 3 ML PEN SC SCH ×2 (16:15→20:22)
[2017-01-31] MEDS: ACETAMINOPHEN/CODEINE 300/30MG TAB PO PRN ×2 (17:01→23:06)
--- NOTE | 2017-01-31 18:00 | EMERGENCY ROOM VISIT NOTE ---
History Report prepared by Bhavna: Renlado Romero Under the Supervision of: Dr. Salvador Payan M.D. First contact with patient: 12:24 Chief Complaint: SHORTNESS OF BREATH Stated Complaint: CHEST PAIN/NAUSEA/WEAKNESS/COUGH Nursing Triage Summary: Shortness of breath on exertion, chest pain on exertion with weakness. Has home 02 at 2 liters to wear as needed and patient states she has been using this more frequently over the past few days. Currenly saturating 96% on room air. Patient states she possibly has MS but is not being treated. History of Present Illness The patient is a 67 year old female who presents to the Emergency Room with complaints of constant left sided chest pain beginning a few days ago. She also complains of shortness of breath. Her symptoms are worsened with exertion. She states that simply bending forward worsens her symptoms. The patient wears supplemental oxygen by nasal canula as needed. She describes her chest pain as a feeling of "pressure". She states that the pain radiates down her left arm. The patient also complains of left arm and bilateral leg weakness. She notes that she has been having a lot of "nerve pain" throughout her legs as well. She states that she has been having some difficulty walking recently. The patient has a history of diabetes and hypertension. 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 She denies any leg swelling. Source of History: patient Onset: A few days ago Position: chest (left) Quality: pressure Timing: constant Modifying Factors (Worsening): exertion Associated Symptoms: + SOB, + weakness (left arm and bilateral legs) Note: The patient denies any leg swelling. Review of Systems See HPI for pertinent positives & negatives. A total of 10 systems reviewed and were otherwise negative. Past Medical & Surgical Medical Problems: (1) Asthma (2) Chest pain (3) DM2 (diabetes mellitus, type 2) (4) GERD (gastroesophageal reflux disease) (5) Hypothyroidism (6) Left leg weakness (7) MVP (mitral valve prolapse) (8) Obesity (9) TAMMI (obstructive sleep apnea) (10) Stroke-like symptom (11) Trigeminal neuralgia Surgical Problems: (1) H/O cardiac catheterization (2) H/O hernia repair (3) History of carpal tunnel surgery (4) S/P hysterectomy Family History Diabetes mellitus SISTER FH: aneurysm FATHER FH: cancer MOTHER Heart disease FATHER MOTHER SISTER Hypertension BROTHER Stroke MOTHER Social History Smoking Status: Former Smoker Alcohol Use: none Drug Use: none Marital Status: single Housing Status: lives alone Occupation Status: retired Current/Historical Medications Scheduled Acetaminophen/Codeine (Tylenol W/Codeine #3), 1 TAB PO BID Artificial Tears Oph Oint (Lacri-Lube Sop Oph Oint), 0.25-0.5 INCH OP HS Fluticasone Prop/Salmeterol (Advair Diskus 250/50 60 Dose), 1 PUFF INH BID Insulin Lispro (Human) (Humalog Kwikpen), 24 UNITS SQ AC Levothyroxine Sodium (Levothyroxine Sodium), 1 TAB PO QAM Multivitamin (Multivitamin), 1 TAB PO QPM Oxygen (Oxygen), 2 LITERS NA PRN Polyethylene (Miralax), 17 GM PO QAM Scheduled PRN Albuterol Sulf (Albuterol Sulfate), 1 VIAL NEB Q6 PRN for SOB/Wheezing Albuterol Sulfate (Proair Respiclick), 2 PUFFS INH Q4 PRN for SOB/Wheezing Clonazepam (Klonopin), 1 TAB PO BID PRN for Pain Cyclosporine (Ophth) (Restasis), 1 DROP OP BID PRN for PRN Estrogens, Conjugated (Premarin), 0.5 GM TOP QAM PRN for PRN Ipratropium-Albuterol (Duoneb), 1 TREATMENT INH QID PRN for SOB/Wheezing Ondansetron (Ondansetron HCl), 4 MG PO Q6 PRN for Nausea Phenazopyridine HCl (Pyridium), 200 MG PO TID PRN for PRN Simethicone (Simethicone), 125 MG PO QID PRN for GAS [Unknown Eyedrops], 1 DROP OPB 2-3 TIMES PRN for BURNING EYES Allergies Coded Allergies: Meloxicam (Verified Allergy, Severe, RASH/WHEEZING/ITCHING/ "FELT I COULDN 'T BREATH", 01/31/17) Niacin (Verified Allergy, Severe, "WHEEZING/RASH/RUSHED TO ER AND GIVEN SHOT", 01/31/17) Silicone (Verified Allergy, Severe, FACIAL SWELLING AND WHEEZING, 01/31/17) Doxycycline (Verified Allergy, Mild, N/V AND PAIN, 01/31/17) Latex (Verified Allergy, Mild, SLIGHT WHEEZING, 01/31/17) Adhesives (Verified Allergy, Unknown, BANDAIDS-RED RASH, 01/31/17) Duloxetine (Verified Adverse Reaction, Intermediate, JOINT PAIN AND ELEVATED BLOOD SUGAR, 01/31/17) Tetracycline (Verified Adverse Reaction, Intermediate, VOMIT/PASS OUT-PT DENIES, 01/31/17) Aspirin (Verified Adverse Reaction, Mild, nausea, vomitting, abd pain, 01/31) Buspirone (Verified Adverse Reaction, Mild, N/V/PAIN-PT DENIES, 01/31/17) NSAIDs (Verified Adverse Reaction, Mild, GI UPSET/VOMITING, 01/31/17) Pregabalin (Verified Adverse Reaction, Mild, PAIN AND NAUSEA, 01/31/17) Rosuvastatin (Verified Adverse Reaction, Mild, JOINT PAIN VOMIT, 01/31/17) Simvastatin (Verified Adverse Reaction, Mild, JOINT PAIN, 01/31/17) Statins (Verified Adverse Reaction, Unknown, MYALGIA AND JOINT PAINS, ) Physical Exam Vital Signs Date Time Temp Pulse Resp B/P Pulse Ox O2 Delivery O2 Flow Rate FiO2 01/31/17 13:31 84 16 172/114 97 Room Air 01/31/17 12:56 88 19 157/93 97 Room Air 01/31/17 12:45 97 Room Air 01/31/17 12:17 86 01/31/17 11:48 97 Room Air 01/31/17 11:48 36.6 86 19 168/99 95 Room Air Physical Exam Constitutional: Vital signs reviewed. Eyes: Pupils are equal round reactive to light. Conjunctiva are noninjected. ENT: Pharynx is clear without erythema or exudate. Mucous membranes are moist. Neck supple without meningeal signs. Respiratory: Clear to auscultation bilaterally. Breath sounds are equal bilaterally. Cardiovascular: Regular rate and rhythm. No rubs or gallops. GI: Soft, nondistended and nontender. Bowel sounds are present. Musculoskeletal: No peripheral edema. No lower extremity tenderness. Integumentary: No cyanosis. Neurological: The patient is awake and alert. Cranial nerves II-12 are intact. No pronator drift. Normal speech. 4/5 strength in both legs and the left arm. 5/5 strength in the right arm. Psychiatric: Normal affect. Medical Decision & Procedures ER Provider Diagnostic Interpretation: X-ray results as stated below per interpretation by me and the radiologist. CT results as stated below per my review and the radiologist's interpretation: CHEST ONE VIEW PORTABLE FINDINGS: The cardiac and mediastinal contours are normal. There is no evidence of focal pulmonary consolidation. There is no evidence of failure. No pleural effusions are visualized.[ IMPRESSION: No active disease in the chest. Electronically signed by: Mateo Gonzalez M.D. CT HEAD WITHOUT CONTRAST (CT) FINDINGS: No intra or extra-axial mass lesions are visualized. There is no CT evidence of acute cortical infarction. There is no evidence of midline shift. There is no acute hemorrhage. No calvarial fractures are visualized. There are patchy white matter hypodensities likely on a small vessel basis. There is no evidence of pathologic ventricular dilatation. There is no evidence of acute sinusitis IMPRESSION: No acute intracranial findings Electronically signed by: Mateo Gonzalez M.D. Laboratory Results 01/31/17 11:55 Red Blood Count 4.63, Mean Corpuscular Volume 96.3, Mean Corpuscular Hemoglobin 30.2, Mean Corpuscular Hemoglobin Concent 31.4, Mean Platelet Volume 10.5, Neutrophils (%) (Auto) 70.3, Lymphocytes (%) (Auto) 22.3, Monocytes (%) (Auto) 5.3, Eosinophils (%) (Auto) 1.4, Basophils (%) (Auto) 0.5, Neutrophils # (Auto) 5.94, Lymphocytes # (Auto) 1.89, Monocytes # (Auto) 0.45, Eosinophils # (Auto) 0.12, Basophils # (Auto) 0.04 01/31/17 11:55 Test 01/31/17 11:55 01/31/17 13:21 White Blood Count 8.46 K/uL (4.8-10.8) Red Blood Count 4.63 M/uL (4.2-5.4) Hemoglobin 14.0 g/dL (12.0-16.0) Hematocrit 44.6 % (37-47) Mean Corpuscular Volume 96.3 fL (80-100) Mean Corpuscular Hemoglobin 30.2 pg (25-34) Mean Corpuscular Hemoglobin Concent 31.4 g/dl (32-36) Platelet Count 268 K/uL (130-400) Mean Platelet Volume 10.5 fL (7.4-10.4) Neutrophils (%) (Auto) 70.3 % Lymphocytes (%) (Auto) 22.3 % Monocytes (%) (Auto) 5.3 % Eosinophils (%) (Auto) 1.4 % Basophils (%) (Auto) 0.5 % Neutrophils # (Auto) 5.94 K/uL (1.4-6.5) Lymphocytes # (Auto) 1.89 K/uL (1.2-3.4) Monocytes # (Auto) 0.45 K/uL (0.11-0.59) Eosinophils # (Auto) 0.12 K/uL (0-0.5) Basophils # (Auto) 0.04 K/uL (0-0.2) RDW Standard Deviation 48.1 fL (36.4-46.3) RDW Coefficient of Variation 13.5 % (11.5-14.5) Immature Granulocyte % (Auto) 0.2 % Immature Granulocyte # (Auto) 0.02 K/uL (0.00-0.02) Prothrombin Time 10.4 SECONDS (9.0-12.0) Prothromb Time International Ratio 1.0 (0.9-1.1) Activated Partial Thromboplast Time 25.9 SECONDS (21.0-31.0) Partial Thromboplastin Ratio 1.0 Anion Gap 6.0 mmol/L (3-11) Est Creatinine Clear Calc Drug Dose 88.4 ml/min Estimated GFR () 94.9 Estimated GFR (Non- 81.9 BUN/Creatinine Ratio 13.1 (10-20) Calcium Level 9.3 mg/dl (8.5-10.1) Total Creatine Kinase 64 U/L (26-192) Creatine Kinase MB < 0.5 ng/ml (0.5-3.6) Creatine Kinase MB Ratio (0-3.0) Troponin I < 0.015 ng/ml (0-0.045) Chemistry Specimen Hemolysis Bedside Prothrombin Time INR 1.1 (0.9-1.1) Laboratory results as reviewed by me. Medications Administered Medications (Trade) Dose Ordered Sig/Tracy Route Start Time Stop Time Status Last Admin Dose Admin Sodium Chloride (Nss 1000ml) 1,000 ml @ 50 mls/hr Q20H IV 5/7/17 12:31 03/02/17 12:30 01/31/17 12:49 50 MLS/HR Morphine Sulfate (MoRPHine SULFATE INJ) 2 mg NOW STAT IV 01/31/17 12:50 01/31/17 12:51 DC 01/31/17 12:54 2 MG Ondansetron HCl (Zofran Inj) 4 mg NOW STAT IV 01/31/17 12:50 01/31/17 12:51 DC 01/31/17 12:54 4 MG Morphine Sulfate (MoRPHine SULFATE INJ) 2 mg NOW STAT IV 01/31/17 13:28 01/31/17 13:29 DC 01/31/17 13:41 2 MG ECG Indication: SOB/dyspnea Rate (beats per minute): 80 Rhythm: normal sinus Findings: ST depression (Slight. V1 and AVL. ), no ectopy Change: Repeat ECG reveals a normal sinus rhythm with a rate of 76 bpm. Slight improvement of the ST depressions in V1 and AVL. No ectopy. ED Course 1227: The patient was evaluated in room B10. A complete history and physical exam was performed. 1231: Ordered Sodium Chloride 1000 ml @ 50 mls/hr IV 1245: Ordered Nitroglycerin 2% Oint 0.5 inch EXT. The patient refused the nitroglycerin because it makes her short of breath. 1250: Ordered Zofran Inj 4 mg IV, Morphine Sulfate 2 mg IV. 1325: I discussed tonight's findings with the patient. She verbalized agreement of the treatment plan. The patient will be evaluated for further management. Medical Decision This is a 67-year-old female who presents with chest pain, shortness of breath and weakness to her extremities. Differential diagnosis includes unstable angina, TN, GERD, intracranial mass, intracranial hemorrhage, CVA. I did perform a limited focused review of portions of the patient's old chart on the electronic medical record. The patient has had no recent pertinent visits to this hospital. I did evaluate the patient as noted above. The patient is presenting with chest pressure which is worse on exertion. She also complains of weakness to her left arm. She also notes that her legs have been weak recently as well. IV access was established. The patient was placed on a continuous youth nutritional monitor. I did order and personally review the patient's 12-lead EKG and chest x-ray as described above. She does have some ST depression in leads 1 and aVL. I did order and review the patient's blood work as noted in the electronic medical record. Troponin is negative. I did repeat another twelve-lead EKG which shows minimal improvement of the ST depressions. I did order a CT of the head. I did review the images myself as well as the radiology report as described above. There is no evidence of stroke. I did treat patient with morphine IV for her chest pain that she could not take nitroglycerin. I did recommend hospitalization for further evaluation. I did discuss case with the hospitalist and patient case coordinator. Consults Time Called: [phone] Consulting Physician: Dr. Jose Kapoor Returned Call: [phone] Discussed the patient's case. The patient will be evaluated for further management. Impression Primary Impression: Exertional chest pain Additional Impressions: Left arm weakness Abnormal ECG Bilateral leg weakness Scribe Attestation The scribe's documentation has been prepared under my direct and personally reviewed by me in its entirety. I confirm that the note above accurately reflects all work, treatment, procedures, and medical decision making performed by me. Departure Information Dispostion Being Evaluated By Hospitalist Referrals Gary Ba MD (PCP) Patient Instructions My [facility] Problem Qualifiers
[2017-01-31 19:50] VITALS: BP 137/51; PULSE 73; TEMP 37.2; O2SAT 95
[2017-01-31] MEDS: ONDANSETRON 4 MG TAB PO PRN (19:52)
[2017-01-31] MEDS: FLUTICASONE/SALMETEROL 250/50 (ADVAIR) 14 PUFF/1 INHALER INH SCH (19:57)
[2017-01-31] MEDS: MULTIVITAMIN TAB PO SCH (19:58)
[2017-01-31 20:00] VITALS: O2SAT 99
[2017-01-31] MEDS: CLONAZEPAM 0.5 MG TAB PO PRN (23:08)
[2017-01-31 23:24] VITALS: BP 142/71; PULSE 73; TEMP 36.8; O2SAT 94
[2017-02-01] VITALS (7 sets, daily range): BP systolic 105–132; BP diastolic 42–72; PULSE 68–78; TEMP 36.4–36.9; O2SAT 94–97
[2017-02-01] MEDS: LEVOTHYROXINE 50 MCG TAB PO SCH (06:07)
[2017-02-01] MEDS: ONDANSETRON 4 MG TAB PO PRN ×2 (06:29→13:16)
[2017-02-01] MEDS: ACETAMINOPHEN/CODEINE 300/30MG TAB PO PRN ×3 (06:30→20:18)
[2017-02-01] MEDS: INSULIN ASPART 100 UNITS/ML 3 ML PEN SC SCH ×4 (07:00→21:40)
[2017-02-01 07:08] LABS: HEMATOCRIT 42.7 % (37-47); MEAN CELL VOLUME 96.6 fL (80-100); MEAN CORPUSCULAR HEMOGLOBIN 31.2 pg (25-34); MEAN CORPUSCULAR HGB CONC 32.3 g/dl (32-36); MEAN PLATELET VOLUME 10.8 fL (7.4-10.4); PLATELET COUNT 229 K/uL (130-400); RED BLOOD COUNT 4.42 M/uL (4.2-5.4); WHITE BLOOD COUNT 6.44 K/uL (4.8-10.8)
[2017-02-01 07:40] LABS: BLOOD UREA NITROGEN 8 mg/dl (7-18); BUN/CREATININE RATIO 13.6 (10-20); CALCIUM 8.5 mg/dl (8.5-10.1); CARBON DIOXIDE 29 mmol/L (21-32); CHLORIDE 109 mmol/L (98-107); CREATININE 0.59 mg/dl (0.60-1.20); GLUCOSE 111 mg/dl (70-99); POTASSIUM 3.6 mmol/L (3.5-5.1); SODIUM 143 mmol/L (136-145)
[2017-02-01 07:48] LABS: CHOLESTEROL 194 mg/dl (0-200); HDL CHOLESTEROL 49 mg/dl; LDL CHOLESTEROL CALCULATED 106 mg/dl; TRIGLYCERIDES 196 mg/dl (0-150); VERY LOW DENSITY LIPOPROT CALC 39 mg/dl
[2017-02-01] MEDS: POLYETHYLENE (MIRALAX) 17 GM PACK PO SCH ×4 (08:22→20:19)
[2017-02-01] MEDS: PANTOprazole SOD 40 MG TAB PO SCH (08:22)
[2017-02-01] MEDS: FLUTICASONE/SALMETEROL 250/50 (ADVAIR) 14 PUFF/1 INHALER INH SCH ×2 (08:22→20:18)
[2017-02-01 08:34] LABS: ESTIMATED AVERAGE GLUCOSE 134 mg/dl; HA1C FLAG Normal (Normal)
[2017-02-01] MEDS ORDERED: ASPIRIN 81 MG ECTAB PO SCH (09:00)
[2017-02-01] MEDS ORDERED: ATROPINE SULFATE 0.1 MG/ML 5ML SYR ONE (09:18)
[2017-02-01] MEDS ORDERED: METOPROLOL TARTRATE 1 MG/ML VIAL ONE (09:19)
[2017-02-01] MEDS ORDERED: DOBUTamine HCL 12.5 MG/ML 20 ML VIAL ONE (09:19)
[2017-02-01] MEDS ORDERED: PERFLUTREN LIPID MICROSPHERE (DEFINITY) IV ONE (11:42)
--- NOTE | 2017-02-01 13:00 | DOBUTAMINE ECHO ---
*NOTICE TO RECEIVING LIBERTARIAN AGENCY This information is strictly Confidential and protected under [place] law. [place] law prohibits you from making any further disclosure of this information unless further disclosure is expressly permitted by the written consent of the person to whom it pertains or is authorized by law. A general authorization for the release of medical or other information is not sufficient for this purpose. Hospital accepts no responsibility if the information is made available to any other person, INCLUDING THE PATIENT. Interpretation Summary * Name: ANURAG DIAZ Study Date: 02/01/2017 08:22 AM BP: 124/68 mmHg * Patient Location: [facility] HR: 71 * : 1950 (M/d/yyyy) Gender: Female Height: 65 in * Age: 67 yrs Ethnicity: [place] Weight: 225 lb * Ordering Physician: Coretta Garcia. * Referring Physician: Self, Referred * Performed By: Tri Harman RDCS * * Reason For Study: CHEST PAIN * BSA: 2.1 m2 * Dobutamine stress echo is equivocal for inducible ischemia with reproduction of chest discomfort at peak heart rate and subtle basal posterior wall lag on stress imaging. * -- Conclusions -- * Resting Study: * Ejection Fraction = 60-65%. * The left ventricular wall motion is normal at rest. * Aortic valve sclerosis mild, without significant aortic valvular stenosis. * There is trace tricuspid regurgitation. * Doppler findings do not suggest pulmonary hypertension. * Grade I diastolic dysfunction, (abnormal relaxation pattern). Procedure Details * DOBUTAMINE ECHO, CPT#77624 * A contrast injection of Definity was performed to improve assessment of LV function. * Contrast was injected into an intravenous site in the right arm. * One vial of Definity ultrasound contrast was diluted in normal saline to a total volume of 10 ml. A total of '5' ml of solution was administered during imaging. * Lot # [id number] of Definity utilized for procedure. * Expiration date JAN 12. * The attending nurse who injected the contrast agent was FRANSISCA MCDERMOTT RN. * ECHOEX, CPT #77976 * ECHO DOPPLER, CPT #[id number] * ECHO COLOR FLOW, CPT #60755 Left Ventricle * The left ventricle is normal in size. * There is mild concentric left ventricular hypertrophy. * Ejection Fraction = 60-65%. * Left ventricular systolic function is normal. * The left ventricular wall motion is normal at rest. * Subtle basal posterior lag noted in apical three chamber view. Right Ventricle * The right ventricle is normal in size and function. * The right ventricular systolic function is normal. Atria * The left atrial size is normal. * Right atrial size is normal. * No ASD detected; PFO is not assessed. Mitral Valve * The mitral valve is normal. * There is no mitral valve stenosis. * There is trace mitral regurgitation. Tricuspid Valve * The tricuspid valve is normal. * There is no tricuspid stenosis. * There is trace tricuspid regurgitation. * Doppler findings do not suggest pulmonary hypertension. Aortic Valve * The aortic valve is trileaflet. * Aortic valve sclerosis mild, without significant aortic valvular stenosis. * No hemodynamically significant valvular aortic stenosis. * No aortic regurgitation is present. Pulmonic Valve * The pulmonary valve is inadequately visualized, but the Doppler data is adequate for interpretation. * Trace pulmonic valvular regurgitation. Great Vessels * The aortic root is normal size. Pericardium * There is no pericardial effusion. Stress Parameters * The baseline ECG displays normal sinus rhythm. * Stress ECG: No ST changes. No arrhythmias. * The stress portion of this study was personally supervised by the undersigned interpreting physician. * Rest heart rate was '71' BPM. * Rest blood pressure was '124/68' * Maximum heart rate achieved was 141 bpm. * Maximum heart rate was 92 % of maximum age-predicted heart rate. * Maximum blood pressure was '209/60' * Maximum Dobutamine infusion rate was '30' mcg/kg/min. * A total of .25 mg of intravenous Atropine was used to supplement Dobutamine for heart rate response. * Dobutamine infusion was terminated due to achieving target heart rate * A total of 5 mg of IV Metoprolol was administered to reverse Dobutamine-induced tachycardia. Left Ventricular Diastolic Function * Grade I diastolic dysfunction, (abnormal relaxation pattern). MMode 2D Measurements and Calculations IVSd 1.3 cm IVSs 1.6 cm LVIDd 4.5 cm LVIDs 2.7 cm LVPWd 1.3 cm LVPWs 1.4 cm IVS/LVPW 1.0 FS 39.1 % EDV(Teich) 90.4 ml ESV(Teich) 27.4 ml EF(Teich) 69.7 % EDV(cubed) 88.5 ml ESV(cubed) 20.0 ml EF(cubed) 77.4 % % IVS thick 21.3 % % LVPW thick 10.1 % LV mass(C)d 220.0 grams LV mass(C)dI 105.8 grams/m\S\2 LV mass(C)s 140.6 grams LV mass(C)sI 67.6 grams/m\S\2 SV(Teich) 63.0 ml SI(Teich) 30.3 ml/m\S\2 SV(cubed) 68.5 ml SI(cubed) 33.0 ml/m\S\2 Ao root diam 3.1 cm Ao root area 7.7 cm\S\2 LA dimension 3.2 cm LA/Ao 1.0 LVAd ap4 22.5 cm\S\2 LVLd ap4 7.2 cm EDV(MOD-sp4) 56.9 ml EDV(sp4-el) 59.4 ml LVAs ap4 12.2 cm\S\2 LVLs ap4 5.9 cm ESV(MOD-sp4) 23.1 ml ESV(sp4-el) 21.5 ml EF(MOD-sp4) 59.4 % EF(sp4-el) 63.8 % LVAd ap2 19.2 cm\S\2 LVLd ap2 7.2 cm EDV(MOD-sp2) 44.8 ml EDV(sp2-el) 43.1 ml LVAs ap2 10.7 cm\S\2 LVLs ap2 6.0 cm ESV(MOD-sp2) 17.3 ml ESV(sp2-el) 16.2 ml EF(MOD-sp2) 61.4 % EF(sp2-el) 62.5 % LVLd %diff -0.24 % EDV(MOD-bp) 50.7 ml LVLs %diff 2.2 % ESV(MOD-bp) 20.5 ml EF(MOD-bp) 59.6 % SV(MOD-sp4) 33.8 ml SI(MOD-sp4) 16.3 ml/m\S\2 SV(MOD-sp2) 27.5 ml SI(MOD-sp2) 13.2 ml/m\S\2 SV(MOD-bp) 30.2 ml SI(MOD-bp) 14.5 ml/m\S\2 SV(sp4-el) 37.9 ml SI(sp4-el) 18.2 ml/m\S\2 SV(sp2-el) 27.0 ml SI(sp2-el) 13.0 ml/m\S\2 Doppler Measurements and Calculations MV E max faith 66.4 cm/sec MV A max faith 81.0 cm/sec MV E/A 0.82 MV dec time 0.22 sec Ao V2 max 158.5 cm/sec Ao max PG 10.1 mmHg Ao max PG (full) 5.7 mmHg LV V1 max PG 4.4 mmHg LV V1 max 104.8 cm/sec TR max faith 241.4 cm/sec
--- NOTE | 2017-02-01 13:57 | CARDIOLOGY CONSULTATION ---
DATE OF CONSULTATION: 02/01/2017 REASON FOR CONSULTATION: Chest pain, equivocal stress testing. HISTORY OF PRESENT ILLNESS: Ms. Springer is a 67-year-old female presented to the Emergency Department yesterday with chest discomfort. She describes sharp stabbing pain which radiated to her left arm. The pain was intermittent and not associated with exertion. At times, the pain was described as burning and a pressure like. Notes dyspnea on exertion which is reportedly new as well. She was referred for dobutamine stress echocardiography earlier today. The stress test was performed without complication. The patient developed significant chest discomfort at peak heart rate, concerning for angina. Review of her images demonstrated a questionable subtle lag of her basal posterior wall in apical 3-chamber view. Overall, the study was equivocal for inducible ischemia. I have been asked to see the patient regarding further evaluation. Currently, the patient is pain free. She was fed her midday meal. Denies chest pain or unusual shortness of breath at this time. No dysrhythmias on telemetry. History significant for multiple admissions for chest discomfort. A dobutamine stress echo was performed in 2009 with similar findings. At that time, the patient underwent a coronary angiography which was normal. This patient notes multiple complaints of chronic abdominal pain, back pain, leg pain, intermittent nausea, headaches. REVIEW OF SYSTEMS: The pertinent positives noted above, a comprehensive 10-system review is otherwise negative. PAST MEDICAL HISTORY: 1. Normal coronary anatomy per cardiac catheterization in 2009. 2. Reactive airways disease. 3. Diabetes type 2. 4. GERD. 5. Hypothyroidism. 6. Mitral valve prolapse. 7. Obesity. 8. Obstructive sleep apnea. 9. Trigeminal neuralgia. PAST SURGICAL HISTORY: 1. Cardiac catheterization in 2009: Normal coronary arteries. 2. Hernia repair. 3. Carpal tunnel surgery. 4. Hysterectomy. FAMILY HISTORY: Brother with coronary disease in his 40s, sister with coronary artery disease in her 50s and 2 prior myocardial infarction and his father with a history of coronary artery disease in his 40s. There is a possible history of cerebral aneurysm as well. SOCIAL HISTORY: Former tobacco use, quit 15 years ago. ALLERGIES: 1. MOBIC. 2. NIACIN. 3. SILICONE. 4. DOXYCYCLINE. 5. LATEX. 6. ADHESIVES. 7. Duloxetine. 8. TETRACYCLINE. 9. ASPIRIN. 10. BUSPAR. 11. NSAIDS. 12. PREGABALIN. 13. LOVASTATIN. 14. SIMVASTATIN. 15. STATINS. CURRENT HOME MEDICATIONS: 1. Tylenol with codeine twice daily as needed. 2. Advair Diskus twice daily. 3. Lispro 44 units a.c. 4. Synthroid daily. 5. Multivitamin daily. 6. Supplemental oxygen as needed. 7. MiraLax as needed. 8. Albuterol as needed. 9. Klonopin as needed. 10. Topical estrogens. 11. Pyridium as needed. LABORATORY DATA: Cardiac enzymes are undetectable. Sodium is 143, potassium 3.6, chloride 109, CO2 is 29, BUN is 8, and creatinine is 0.59. White blood cell count is 644, hemoglobin is 13.8, and platelet count is 229. IMAGING DATA: Chest x-ray on admission - no active disease. ECG today demonstrates sinus rhythm with poor R-wave progression, nonspecific T-wave abnormality, left axis deviation. PHYSICAL EXAMINATION: VITAL SIGNS: Temperature is 36.6 degrees centigrade, pulse 75 beats per minute and regular, respiratory rate 16 breaths per minute, blood pressure 130/72, SaO2 94% on room air. GENERAL: NAD, awake, alert and oriented x3. HEENT: Mucous membranes are moist. No scleral icterus. Conjunctivae pink. NECK: Supple without JVD or HJR. No carotid bruit. HEART: Regular with normal S1, S2, no murmur, rub, or gallop. LUNGS: Clear without rales, rhonchi or wheeze. ABDOMEN: Soft, nontender. No rebound or guarding. Normal bowel sounds. EXTREMITIES: Warm and dry without clubbing, cyanosis, or edema. NEUROLOGIC: Demonstrates no focal motor deficit. FINAL IMPRESSION: 1. Atypical chest discomfort with equivocal dobutamine stress echocardiography findings including reproduction of chest discomfort and subtle basal posterior wall motion lag, on stress imaging evident in 1 view. 2. History of normal coronary anatomy per prior cardiac catheterization in 2009. 3. Family history of coronary artery disease as noted above. 4. Remote former tobacco abuse. 5. History of statin intolerance. PLAN AND RECOMMENDATIONS: I had a long discussion with the patient regarding her dobutamine stress echo results and atypical symptoms. We discussed further evaluation including invasive coronary angiography with inherent risks versus alternative stress imaging modality. The patient is agreeable to Lexiscan nuclear stress testing. She will be made n.p.o. after midnight. No caffeine for the next 24 hours. No medication changes at this time. Further recommendations pending review of Lexiscan stress testing.
[2017-02-01] MEDS: ENOXAPARIN 40 MG/0.4 ML SYR SC SCH (16:00)
--- NOTE | 2017-02-01 17:07 | Progress Note ---
Internal Med Progress Note Date of Service: February 01, 2017. Provider Documentation: SUBJECTIVE: no complain of chest pain or sob at present schedule for cardiac Lexiscan tomorrow OBJECTIVE: Vital Signs-as noted below Exam: General-no sign of distress Lungs-CTA Heart-regular S1/S2 Abdomen-soft,non tender Extremities-no lower ext edema Neuro-AAO x3 Lab data as noted below. ASSESSMENT & PLAN: CHEST PAIN, ATYPICAL Rule out ACS. Does have reproducible chest tenderness, vague complaints - changes her story and symptom characteristics on and off. -EKG- no acute ischemic changes, CXR- no acute findings, Saturating well on RA -Troponin x 3-negative -Patient is allergic to ASA, Statins. -Cardiac stress test : today 02/01/17 Dobutamine stress echo is equivocal for inducible ischemia with reproduction of chest discomfort at peak heart rate and subtle basal posterior wall lag on stress imaging. * -- Conclusions -- * Resting Study: * Ejection Fraction = 60-65%. * The left ventricular wall motion is normal at rest. * Aortic valve sclerosis mild, without significant aortic valvular stenosis. * There is trace tricuspid regurgitation. * Doppler findings do not suggest pulmonary hypertension. * Grade I diastolic dysfunction, (abnormal relaxation pattern). -schedule to have Lexiscan tomorrow -discharge home tomorrow if Lexiscan is negative for stress induced ischemia MULTIPLE VAGUE COMPLAINTS Patient c/o numbness on face, arm which is intermittent, ear ringing/burning, lower extremity weakness, abdominal pain- intermittent, diarrhea, back pain. no complain at present focused on the Cardiac Lexisan tomorrow -Anxiety could be contributing- on clonazapam BID at home- continued DM-2 -On basal insulin at home- continue -ISS, Accuchecks, HBA1C ordered HTN- Does not take any medications at home -Will add low dose amlodipine 5 mg as she mentions it has been high in past too and presenting with BP 170/120s -Monitor DVT PROPHYLAXIS Moderate risk- Lovenox SQ GI PROPHYLAXIS Protonix daily FULL CODE per patient, but no prolonged ventilation DISPOSITION Discharge home when medically stable Vital Signs: Date Time Temp Pulse Resp B/P Pulse Ox O2 Delivery O2 Flow Rate FiO2 02/01/17 19:57 36.8 78 18 108/71 96 Room Air 02/01/17 16:00 Room Air 02/01/17 15:59 36.4 73 18 105/42 95 Room Air 02/01/17 12:29 36.6 75 16 132/68 97 Room Air 02/01/17 12:00 Room Air 02/01/17 08:17 36.6 75 16 130/72 94 Room Air 02/01/17 08:00 94 Room Air 02/01/17 04:00 Room Air 02/01/17 03:50 36.9 68 22 119/58 96 Room Air 02/01/17 00:00 Room Air 01/31/17 23:24 36.8 73 22 142/71 94 Room Air Lab Results: Results Past 24 Hours Test 02/01/17 00:33 02/01/17 05:58 02/01/17 06:30 02/01/17 11:03 Range/Units Troponin I < 0.015 < 0.015 0-0.045 ng/ml White Blood Count 6.44 4.8-10.8 K/uL Red Blood Count 4.42 4.2-5.4 M/uL Hemoglobin 13.8 12.0-16.0 g/dL Hematocrit 42.7 37-47 % Mean Corpuscular Volume 96.6 80-100 fL Mean Corpuscular Hemoglobin 31.2 25-34 pg Mean Corpuscular Hemoglobin Concent 32.3 32-36 g/dl RDW Standard Deviation 48.2 36.4-46.3 fL RDW Coefficient of Variation 13.5 11.5-14.5 % Platelet Count 229 130-400 K/uL Mean Platelet Volume 10.8 7.4-10.4 fL Sodium Level 143 136-145 mmol/L Potassium Level 3.6 3.5-5.1 mmol/L Chloride Level 109 98-107 mmol/L Carbon Dioxide Level 29 21-32 mmol/L Anion Gap 5.0 3-11 mmol/L Blood Urea Nitrogen 8 7-18 mg/dl Creatinine 0.59 0.60-1.20 mg/dl Est Creatinine Clear Calc Drug Dose 108.3 ml/min Estimated GFR () 109.2 Estimated GFR (Non- 94.2 BUN/Creatinine Ratio 13.6 10-20 Random Glucose 111 70-99 mg/dl Estimated Average Glucose 134 mg/dl Hemoglobin A1c 6.3 4.5-5.6 % Calcium Level 8.5 8.5-10.1 mg/dl Triglycerides Level 196 0-150 mg/dl Cholesterol Level 194 0-200 mg/dl HDL Cholesterol 49 mg/dl LDL Cholesterol, Calculated 106 mg/dl VLDL Cholesterol, Calculated 39 mg/dl Cholesterol/HDL Ratio 4.0 Bedside Glucose 104 117 70-90 mg/dl Test 02/01/17 16:00 Range/Units Bedside Glucose 99 70-90 mg/dl
[2017-02-01] MEDS: MULTIVITAMIN TAB PO SCH (20:19)
[2017-02-01] MEDS: SODIUM CHLORIDE 0.9% 1000ML 1,000 ML IV SCH (20:19)
[2017-02-02] VITALS (7 sets, daily range): BP systolic 102–138; BP diastolic 41–91; PULSE 63–81; TEMP 36.5–36.9; O2SAT 94–99
[2017-02-02] MEDS: ACETAMINOPHEN/CODEINE 300/30MG TAB PO PRN ×2 (01:31→17:44)
[2017-02-02] MEDS: CLONAZEPAM 0.5 MG TAB PO PRN (01:31)
[2017-02-02] MEDS ORDERED: ACETAMINOPHEN IV 650 MG in EMPTY BAG 0 ML IV PRN (02:00)
[2017-02-02] MEDS: LEVOTHYROXINE 50 MCG TAB PO SCH ×2 (06:24→06:30)
[2017-02-02] MEDS: INSULIN ASPART 100 UNITS/ML 3 ML PEN SC SCH ×3 (07:00→16:40)
[2017-02-02] MEDS: FLUTICASONE/SALMETEROL 250/50 (ADVAIR) 14 PUFF/1 INHALER INH SCH (07:50)
[2017-02-02] MEDS ORDERED: REGADENOSON 0.4 MG/5 ML SYR ONE (08:54)
[2017-02-02 09:45] LABS: MANUAL MICROSCOPIC REQUIRED? NO; URINE APPEARANCE CLEAR (CLEAR); URINE BILIRUBIN NEG (NEG); URINE COLOR YELLOW; URINE NITRITE NEG (NEG); URINE PH 5.5 (4.5-7.5); URINE SPECIFIC GRAVITY 1.025 (1.000-1.030); UROBILINOGEN NEG (NEG)
[2017-02-02 09:46] LABS: REVIEW REQ? NO
[2017-02-02 09:47] LABS: ZZUR CULT IF INDIC CLEAN CATCH NO
--- NOTE | 2017-02-02 09:56 | Progress Note ---
Medicine Progress Note Date & Time of Visit: February 02, 2017 at 09:33. Subjective Pt was seen and examined Lying in bed with no distress pt said that she does have pain almost everywhere she said that in the past she used to take Tylenol with codeine for about 5 yrs She said that they stopped working for the pain because because her body got used with the same dose Then she she was followed with pain management that started her on morphine that was very effective. She said that her pcp does not want to prescribe her the morphine she said that she tried gabapentin, Trileptal in the past with no help. Pt said that she is very frustrated because of the pain denies any palpitation, dizziness and SOB Objective Last 8 Hrs Date Time Temp Pulse Resp B/P Pulse Ox O2 Delivery O2 Flow Rate FiO2 02/02/17 08:27 36.9 63 16 102/41 98 Room Air 02/02/17 08:06 Room Air 02/02/17 04:00 94 Room Air Physical Exam: General- No acute distress Head- atraumatic Eyes- PERRL, EOMI ENT- oropharynx clear Neck- supple, no JVD Lungs- clear to auscultation Heart- regular rhythm; no murmur Abdomen- normal bowel sounds, soft Extremities- no calf tenderness Neuro- alert, oriented x 3; PERRL, EOMI; no facial palsy Skin- warm & dry Laboratory Results: Last 24 Hours Test 02/01/17 11:03 02/01/17 16:00 02/01/17 21:36 02/02/17 06:26 Bedside Glucose 117 mg/dl 99 mg/dl 106 mg/dl 117 mg/dl Test 02/02/17 09:16 Assessment & Plan CHEST PAIN, Need to rule out ACS. Does have reproducible chest tenderness, vague complaints - changes her story and symptom characteristics on and off. EKG- no acute ischemic changes CXR- Negative CM are negative Allergic to ASA, Statins. Had Dobutamine stress echo on 02/01/17 Finding was equivocal for inducible ischemia with reproduction of chest discomfort at peak heart rate and subtle basal posterior wall lag on stress imaging. * -- Conclusions -- * Resting Study: * Ejection Fraction = 60-65%. * The left ventricular wall motion is normal at rest. * Aortic valve sclerosis mild, without significant aortic valvular stenosis. * There is trace tricuspid regurgitation. * Doppler findings do not suggest pulmonary hypertension. * Grade I diastolic dysfunction, (abnormal relaxation pattern). Lexiscan nuclear stress this morning found to be of limited quality, however, no evidence of ischemia in the inferior or posterior territory Will discharge home today MULTIPLE VAGUE COMPLAINTS CHRONIC PAIN SYNDROME Patient c/o numbness on face, arm which is intermittent, ear ringing/burning, lower extremity weakness, abdominal pain- intermittent, diarrhea, back pain. Anxiety could be a factor- Continue Clonazepam home dose BID Morphine used to help her symptoms PCP refused to prescribe morphine Focused on the Cardiac Lexisan today will try tramadol DM-2 HBA1c 6.3 - Controlled On basal insulin at home- continue ISS, Accuchecks HTN- BP on presentation was 170/120 Might be related to pain and anxiety Starting on amlodipine 5 mg BP stable continue monitor BP DVT PROPHYLAXIS Moderate risk- Lovenox SQ GI PROPHYLAXIS Protonix daily FULL CODE per patient, but no prolonged ventilation Consultants: Cardiology Current Inpatient Medications: Current Inpatient Medications Medications (Trade) Dose Ordered Sig/Tracy Route Start Time Stop Time Status Last Admin Dose Admin Albuterol Sulfate (Ventolin 0.083% 2.5MG/3ML Neb) 3 mg Q6 PRN INH 01/31/17 13:45 03/02/17 13:44 Artificial Tears (Lacri-Lube Oph Oint) 1 appln HS PRN OP 01/31/17 13:45 03/02/17 13:44 Clonazepam (Klonopin Tab) 0.5 mg BID PRN PO 01/31/17 13:45 03/02/17 13:44 02/02/17 01:31 0.5 MG Estrogens Conjugated (Premarin Vag Crm) 0.25 appln QAM PRN TOP 01/31/17 13:45 03/02/17 13:44 Salmeterol Xinafoate/ Fluticasone (Advair Diskus 250/50 Inh) 1 puff BID INH 01/31/17 21:00 03/02/17 20:59 02/02/17 07:50 1 PUFF Albuterol/ Ipratropium (Duoneb) 3 ml QID PRN INH 01/31/17 13:45 03/02/17 13:44 Levothyroxine Sodium (Synthroid Tab) 50 mcg DAILYBB PO 02/01/17 06:00 03/03/17 06:59 02/01/17 06:07 50 MCG Multivitamins (Multivitamin Tab) 1 tab QPM PO 01/31/17 21:00 03/02/17 20:59 02/01/17 20:19 1 TAB Ondansetron HCl (Zofran Tab) 4 mg Q6 PRN PO 01/31/17 13:45 03/02/17 13:44 02/01/17 13:16 4 MG Phenazopyridine HCl (Pyridium Tab) 200 mg TID PRN PO 01/31/17 13:45 03/02/17 13:44 Polyethylene (Miralax Powder Packet) 17 gm QAM PO 02/01/17 09:00 03/03/17 08:59 02/01/17 20:19 17 GM Albuterol (Ventolin Hfa Inhaler) 2 puffs Q4 PRN INH 01/31/17 13:45 03/02/17 13:44 Miscellaneous Information (Order Awaiting Action) 1 ea QS N/A 01/31/17 16:00 03/02/17 15:59 Simethicone (Mylicon Chew Tab) 160 mg QID PRN PO 01/31/17 13:45 03/02/17 13:44 01/31/17 19:38 160 MG Enoxaparin Sodium (Lovenox Inj) 40 mg Q24H SC 01/31/17 16:00 03/02/17 15:59 02/01/17 16:00 40 MG Acetaminophen (Tylenol Tab) 650 mg Q4H PRN PO 01/31/17 13:45 03/02/17 13:44 Magnesium Hydroxide (Milk Of Magnesia Susp) 30 ml Q12H PRN PO 01/31/17 13:45 03/02/17 13:44 Nitroglycerin (Nitrostat Tab) 0.4 mg UD PRN SL 01/31/17 13:45 03/02/17 13:44 Polyethylene (Miralax Powder Packet) 17 gm DAILY PRN PO 01/31/17 13:45 03/02/17 13:44 Insulin Aspart (novoLOG ASPART) SLIDING SCALE If C... ACHS SC 01/31/17 16:00 03/02/17 15:59 02/01/17 16:15 6 UNITS Glucose (Glucose 40% Gel) 15-30 GRAMS 15 GRAMS... UD PRN PO 01/31/17 13:45 03/02/17 13:44 Glucose (Glucose Chew Tab) 4-8 Tablets 4 Tabl... UD PRN PO 01/31/17 13:45 03/02/17 13:44 Dextrose (Dextrose 50% 50ML Syringe) 25-50ML OF 50% DW IV FOR... UD PRN IV 01/31/17 13:45 03/02/17 13:44 Glucagon (Glucagon Inj) 1 mg UD PRN SQ 01/31/17 13:45 03/02/17 13:44 Pantoprazole Sodium (Protonix Tab) 40 mg QAM PO 02/01/17 09:00 03/03/17 08:59 02/01/17 08:22 40 MG Miscellaneous (Iv Fluids Completed) 1 ea PRN PRN N/A 01/31/17 14:30 01/31/18 14:29 Acetaminophen/ Codeine Phosphate 1 tab 1 tab Q6H PRN PO 01/31/17 17:00 03/02/17 16:59 02/02/17 01:31 1 TAB Acetaminophen/ Empty Bag (Ofirmev Iv/ Empty Iv Bag 100ml) 65 ml @ 260 mls/hr Q6H PRN IV 02/02/17 02:00 03/04/17 01:59
[2017-02-02] MEDS ORDERED: TRAMADOL HCL 50 MG TAB PO PRN (10:00)
[2017-02-02] MEDS: PANTOprazole SOD 40 MG TAB PO SCH (11:35)
[2017-02-02] MEDS ORDERED: METOPROLOL SUCC 25MG EXT REL TAB PO ONE (14:20)
--- NOTE | 2017-02-02 14:27 | Cardiology Follow-Up ---
Subjective General Date of Service: February 02, 2017. Pt evaluation today including: conversation w/ patient, physical exam, chart review, lab review, review of studies, review of inpatient medication list History of Present Illness The patient is a 67 year old female seen in follow-up.\\ Lexiscan nuclear stress test performed this morning. No evidence of inferior or posterior ischemia. Reports pain everywhere. Reports intermittent palpitations over the past few weeks. She is requesting possible medication to help with her symptoms. No orthopnea, PND, or lower extremity edema. No dysrhythmias on telemetry. Allergies Coded Allergies: Meloxicam (Verified Allergy, Severe, RASH/WHEEZING/ITCHING/ "FELT I COULDN 'T BREATH", 01/31/17) Niacin (Verified Allergy, Severe, "WHEEZING/RASH/RUSHED TO ER AND GIVEN SHOT", 01/31/17) Silicone (Verified Allergy, Severe, FACIAL SWELLING AND WHEEZING, 01/31/17) Doxycycline (Verified Allergy, Mild, N/V AND PAIN, 01/31/17) Latex (Verified Allergy, Mild, SLIGHT WHEEZING, 01/31/17) Adhesives (Verified Allergy, Unknown, BANDAIDS-RED RASH, 01/31/17) Duloxetine (Verified Adverse Reaction, Intermediate, JOINT PAIN AND ELEVATED BLOOD SUGAR, 01/31/17) Tetracycline (Verified Adverse Reaction, Intermediate, VOMIT/PASS OUT-PT DENIES, 01/31/17) Aspirin (Verified Adverse Reaction, Mild, nausea, vomitting, abd pain, 01/31) Buspirone (Verified Adverse Reaction, Mild, N/V/PAIN-PT DENIES, 01/31/17) NSAIDs (Verified Adverse Reaction, Mild, GI UPSET/VOMITING, 01/31/17) Pregabalin (Verified Adverse Reaction, Mild, PAIN AND NAUSEA, 01/31/17) Rosuvastatin (Verified Adverse Reaction, Mild, JOINT PAIN VOMIT, 01/31/17) Simvastatin (Verified Adverse Reaction, Mild, JOINT PAIN, 01/31/17) Statins (Verified Adverse Reaction, Unknown, MYALGIA AND JOINT PAINS, ) Social History Smoking Status: Former Smoker Hx Tobacco Use In Past Year?: No Hx Alcohol Use - Type And Amou: No Hx Substance Use - Type And Am: No Problem List Medical Problems: (1) Abdominal pain Status: Acute (2) Abnormal ECG Status: Acute (3) Bilateral leg weakness Status: Acute (4) Diplopia Status: Acute (5) Exertional chest pain Status: Acute (6) Facial pain Status: Acute (7) Generalized weakness Status: Acute (8) Headache Status: Acute (9) Headache Status: Acute (10) Left arm weakness Status: Acute (11) Left-sided weakness Status: Acute (12) Neck pain Status: Acute (13) Precordial chest pain Status: Acute Review of Systems Respiratory: No cough, No dyspnea at rest, No dyspnea on exertion, No hemoptysis, No shortness of breath, No wheezing Cardiac: No PND, No chest pain, No claudication, No edema, No orthopnea, No palpitations Physical Exam Vital Signs Last Vital Signs Documentation Date Time Temp Pulse Resp B/P Pulse Ox O2 Delivery O2 Flow Rate FiO2 02/02/17 12:33 36.9 73 18 138/62 99 Room Air Physical Exam Constitutional: General Apperance: obese Level of Distress: NAD Ambulation: ambulation with cane ENMT: normal ENT inspection, hearing grossly normal Neck: supple, trachea midline Lungs: Auscultation: breath sounds normal, no wheezing, no rales/crackles, no rhonchi Cardiovascular: Heart Auscultation: RRR, normal S1, normal S2, no murmurs, no rubs, no gallops Peripheral Pulses: Radial Pulse: normal on the right Abdomen: Bowel Sounds: normal Inspection & Palpation: soft, non-distended, no tenderness, guarding & rebound Extremities: no cyanosis, no edema, no clubbing, no ulcers Neurologic: Cranial Nerves: grossly intact Assessment and Plan Assessment and Plan IMP: 1. Atypical chest discomfort with negative cardiac enzymes and equivocal dobutamine stress echocardiography prompting Lexiscan nuclear stress testing today which is found to be of limited quality, however, no evidence of ischemia in the inferior or posterior territory. 2. Palpitations without evidence of dysrhythmia on telemetry. 3. History of normal coronary arteries per prior cardiac catheterization 4. Family history of coronary disease 5. Dyslipidemia with statin intolerance Plan/ recommendations: I long discussion with the patient regarding her prolonged atypical chest discomfort with negative cardiac enzymes suggesting noncardiac etiology. Her equivocal dobutamine stress echo was followed up with the Lexiscan nuclear stress test today. That stress test was of limited quality, however the area in question (posterior inferior wall) without evidence of ischemia. Would recommend no further cardiac testing at this time. I did discuss or subjective palpitations. A trial of Toprol-XL 25 mg daily ordered. Patient will take this on a daily basis. Will sign off at this time. Please call with questions. Laboratory Results Last 24 Hours Test 02/01/17 16:00 02/01/17 21:36 02/02/17 06:26 02/02/17 09:05 Bedside Glucose 99 mg/dl 106 mg/dl 117 mg/dl Urine Color YELLOW Urine Appearance CLEAR Urine pH 5.5 Urine Specific [place] 1.025 Urine Protein NEG Urine Glucose (UA) NEG Urine Ketones NEG Urine Occult Blood NEG Urine Nitrite NEG Urine Bilirubin NEG Urine Urobilinogen NEG Urine Leukocyte Esterase NEG Test 02/02/17 11:32 Bedside Glucose 132 mg/dl
--- NOTE | 2017-02-02 14:39 | MYOCARDIAL PERFUSION SCAN ---
CARDIOLITE STRESS TEST The patient performed a stress testing according to Lexiscan protocol for 5 minutes 59 seconds achieving a max workload of 1.0 METs. A resting heart rate was 70 beats per minute and primitivo to a maximum heart rate of 107 beats per minute. This value represents 70% of the maximal age-predicted target heart rate. Resting blood pressure 140/55 with a maximum blood pressure of 140/55. Stress test was stopped due to completion of protocol. SYMPTOMS: Abdominal discomfort, nausea treated with 50 mg of intravenous aminophylline. RESTING ECG: Sinus rhythm, poor R wave progression, cannot exclude age-indeterminate anterior infarct. STRESS ECG: No significant ST changes. TECHNIQUE: For the stress portion of the study, 23.1 mCi of Technetium 99 m Cardiolite IV was injected at 10:05 a.m. on 02/02/2017. Thirty minutes following the injection, imaging of the heart was performed in multiple projection. For the rest portion of the study, 24.1 on 02/01/2017 mCi of Technetium 99 m Cardiolite was injected IV at 1700 pm. One hour following the injection, imaging of the heart was performed in the same projections. INTERPRETATION SUMMARY: Raw data reveals significant anterior apical breast shadowing on both the rest and stress images. There was also bowel uptake noted adjacent to the inferior wall. The overall quality of the study is fair to poor due to body habitus. The right ventricle is not well visualized. The left ventricle size is normal at rest. RESTING IMAGES: Mild decrease tracer uptake in the left ventricular apex. Otherwise normal perfusion. STRESS IMAGES: There is an equivocal decrease in tracer uptake noted at the anterior apex. This is otherwise normal perfusion with tracer uptake noted adjacent to the inferior wall. GATED STUDY: Normal left ventricular wall motion with a calculated ejection fraction of 76%. CONCLUSION: Lexiscan nuclear stress test likely negative for inducible ischemia with an equivocal decrease uptake of isotopic tracer noted at the left ventricular apex. I suspect this is due to breast shadowing and body habitus. The gated study is normal with preserved systolic function and normal regional wall motion. MTDD
[2017-02-02] MEDS: ENOXAPARIN 40 MG/0.4 ML SYR SC SCH (16:00)
[2017-02-02] MEDS ORDERED: TPRSR25 PO (16:19)
[2017-02-02] MEDS ORDERED: ACET-749 PO (16:19)
--- NOTE | 2017-02-02 16:26 | Discharge Instructions ---
Discharge Instructions Date of Service February 02, 2017. Admission Reason for Admission: Chest Pain Discharge Discharge Diagnosis / Problem: Chest pain, Diabetes, Chronic pain syndrome, Hypertension Discharge Goals Goal(s): Decrease discomfort, Improve function, Improve disease control Activity Recommendations Activity Limitations: resume your previous activity . Instructions / Follow-Up Instructions / Follow-Up Follow up with Dr. Helms (Dr. Rosales's Partner) on 02/05 @ 10:45 am Monitor blood pressure and heart rate Take medications as prescribe it New Medication Metoprolol 25 mg po daily Current Hospital Diet Patient's current hospital diet: AHA Diet (Heart Healthy), Low Sodium Diet (2gm Na), Diabetes Type 2 Diet Discharge Diet Recommended Diet: AHA Diet (Heart Healthy), Low Sodium Diet (2gm Na), Diabetes Type 2 Diet Pending Studies Studies pending at discharge: no Laboratory Results Hemoglobin A1c Test 02/01/17 05:58 Range/Units Estimated Average Glucose 134 mg/dl Hemoglobin A1c 6.3 H 4.5-5.6 % Lipid Panel Test 02/01/17 05:58 Range/Units Triglycerides Level 196 H 0-150 mg/dl Cholesterol Level 194 0-200 mg/dl HDL Cholesterol 49 mg/dl Cholesterol/HDL Ratio 4.0 LDL Cholesterol, Calculated 106 mg/dl Medical Emergencies . Who to Call and When: Medical Emergencies: If at any time you feel your situation is an emergency, please call 911 immediately. . Non-Emergent Contact Non-Emergency issues call your: Primary Care Provider . . "Provider Documentation" section prepared by Prabhakar Hickman. . VTE Core Measure Inpt VTE Proph given/why not?: Enoxaparin (Lovenox)[facility] Drug Monitoring Program Search Results: patient reviewed within database, no issues identified
[2017-02-02] MEDS: ONDANSETRON 4 MG TAB PO PRN (17:44)
--- NOTE | 2017-02-02 18:01 | Discharge Summary ---
Discharge Summary Date of Service February 02, 2017. Discharge Summary Admission Date: January 31, 2017 at 13:47 Discharge Date: February 02, 2017 Discharge Disposition: Home Principal Diagnosis: Chest pain Secondary Diagnoses/Problems: Chronic pain syndrome, HTN, DM II Procedures: Dobutamine stress echo Lexiscan nuclear stress test Consultations: Cardiology Medication Reconciliation New Medications: Metoprolol Succinate (Metoprolol Succinate ER) 25 Mg Tabcr 25 MG PO QAM for 30 Days Changed Medications: Acetaminophen/Codeine (Tylenol W/Codeine #3) 300 Mg/30 Mg Tab 1 TAB PO TID PRN for Pain for 3 Days, #9 TAB (Changed from: BID) Continued Medications: Albuterol Sulf (Albuterol Sulfate) 2.5 Mg/3 Ml Nebu 1 VIAL NEB Q6 PRN for SOB/Wheezing Albuterol Sulfate (Proair Respiclick) 108 Mcg/Act Aer 2 PUFFS INH Q4 PRN for SOB/Wheezing Artificial Tears Oph Oint (Lacri-Lube Sop Oph Oint) Oint 0.25-0.5 INCH OP HS, #1 TUBE TO THE AFFECTED EYE UP TO QID PRN Clonazepam (Klonopin) 0.5 Mg Tab 1 TAB PO BID PRN for Pain for 30 Days, #60 TAB 2 Refills Cyclosporine (Ophth) (Restasis) 0.05 % Emu 1 DROP OP BID PRN for PRN, BTL Estrogens, Conjugated (Premarin) 14 Appln/30 Gm Cr 0.5 GM TOP QAM PRN for PRN Fluticasone Prop/Salmeterol (Advair Diskus 250/50 60 Dose) 1 Ea Aerp 1 PUFF INH BID, INHALER Insulin Lispro (Human) (Humalog Kwikpen) 100 Unit/Ml Inj 24 UNITS SQ AC Ipratropium-Albuterol (Duoneb) 3 Ml Nebu 1 TREATMENT INH QID PRN for SOB/Wheezing, INHA Levothyroxine Sodium (Levothyroxine Sodium) 50 Mcg Tab 1 TAB PO QAM Multivitamin (Multivitamin) Tab 1 TAB PO QPM, 0 Refills Ondansetron (Ondansetron HCl) 4 Mg Tab 4 MG PO Q6 PRN for Nausea, #20 Oxygen (Oxygen) Gas 2 LITERS NA PRN Phenazopyridine HCl (Pyridium) 200 Mg Tab 200 MG PO TID PRN for PRN, #6 TAB Polyethylene (Miralax) 17 Gm Pow 17 GM PO QAM Simethicone (Simethicone) 125 Mg Cap 125 MG PO QID PRN for GAS [Unknown Eyedrops] () 1 DROP OPB 2-3 TIMES PRN for BURNING EYES Admission Information HPI (per Admitting provider): The patient is a 67 year old Female who presents to the Emergency Room with complaints of constant left sided chest pain beginning a few days ago. Patient has multiple complaints and a poor historian. Patient c/o left sided chest pain, radiating to left arm, intermittent, no association with exertion, but worse with activity. At times she says it is burning in nature, the second time she describes it as pressure like. C/o SOB exertional x few days which is new per her. She mentions the SOB specifically was worse when she was leaning forward today. It got better when she stood up. She has multiple vague complaints of numbness on face, occasionally radiating down to arm, bilateral lower extremity weakness on and off for which she has had MRI spine in past. She c/o ringing in ears, burning in ears. C/o abdominal pain on and off, diarrhea. Uses oxygen on and off at home , at night. Denies any fever, chills, cough, nausea, vomiting, leg swelling. No bladder/ bowel incontinence. In ED, BP is high in 170s, saturating well on RA, pulse- 70s. EKG- no acute changes, first set of troponin is negative. CXR- no acute findings. CT head- no acute findings. Will admit her for chest pain, rule out ACS. 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 Does have reproducible chest tenderness, vague complaints - changes her story and symptom characteristics on and off. EKG- no acute ischemic changes CXR- Negative CM are negative Allergic to ASA, Statins. Had Dobutamine stress echo on 02/01/17 Finding was equivocal for inducible ischemia with reproduction of chest discomfort at peak heart rate and subtle basal posterior wall lag on stress imaging. * -- Conclusions -- * Resting Study: * Ejection Fraction = 60-65%. * The left ventricular wall motion is normal at rest. * Aortic valve sclerosis mild, without significant aortic valvular stenosis. * There is trace tricuspid regurgitation. * Doppler findings do not suggest pulmonary hypertension. * Grade I diastolic dysfunction, (abnormal relaxation pattern). Lexiscan nuclear stress on 02/02/17 found to be of limited quality, however, no evidence of ischemia in the inferior or posterior territory Will discharge home today MULTIPLE VAGUE COMPLAINTS CHRONIC PAIN SYNDROME Patient c/o numbness on face, arm which is intermittent, ear ringing/burning, lower extremity weakness, abdominal pain- intermittent, diarrhea, back pain. Anxiety could be a factor- Continue Clonazepam home dose BID Morphine used to help her symptoms PCP refused to prescribe morphine Focused on the Cardiac Lexisan today will try tramadol DM-2 HBA1c 6.3 - Controlled On basal insulin at home- continue ISS, Accuchecks HTN- BP on presentation was 170/120 Might be related to pain and anxiety Starting on amlodipine 5 mg BP stable continue monitor BP DVT PROPHYLAXIS Moderate risk- Lovenox SQ GI PROPHYLAXIS Protonix daily FULL CODE per patient, but no prolonged ventilation Total time spent on discharge = 35 minutes This includes examination of the patient, discharge planning, medication reconciliation, and communication with other providers. Discharge Instructions Discharge Instructions Date of Service February 02, 2017. Admission Reason for Admission: Chest Pain Discharge Discharge Diagnosis / Problem: Chest pain, Diabetes, Chronic pain syndrome, Hypertension Discharge Goals Goal(s): Decrease discomfort, Improve function, Improve disease control Activity Recommendations Activity Limitations: resume your previous activity . Instructions / Follow-Up Instructions / Follow-Up Follow up with Dr. Helms (Dr. Rosales's Partner) on 02/05 @ 10:45 am Monitor blood pressure and heart rate Take medications as prescribe it New Medication Metoprolol 25 mg po daily Current Hospital Diet Patient's current hospital diet: AHA Diet (Heart Healthy), Low Sodium Diet (2gm Na), Diabetes Type 2 Diet Discharge Diet Recommended Diet: AHA Diet (Heart Healthy), Low Sodium Diet (2gm Na), Diabetes Type 2 Diet Pending Studies Studies pending at discharge: no Laboratory Results Hemoglobin A1c Test 02/01/17 05:58 Range/Units Estimated Average Glucose 134 mg/dl Hemoglobin A1c 6.3 H 4.5-5.6 % Lipid Panel Test 02/01/17 05:58 Range/Units Triglycerides Level 196 H 0-150 mg/dl Cholesterol Level 194 0-200 mg/dl HDL Cholesterol 49 mg/dl Cholesterol/HDL Ratio 4.0 LDL Cholesterol, Calculated 106 mg/dl Medical Emergencies . Who to Call and When: Medical Emergencies: If at any time you feel your situation is an emergency, please call 911 immediately. . Non-Emergent Contact Non-Emergency issues call your: Primary Care Provider . . "Provider Documentation" section prepared by Prabhakar Hickman. . VTE Core Measure Inpt VTE Proph given/why not?: Enoxaparin (Lovenox)[facility] Drug Monitoring Program Search Results: patient reviewed within database, no issues identified Additional Copies To Gary Ba MD
[2017-02-03] MEDS ORDERED: METOPROLOL SUCC 25MG EXT REL TAB PO SCH (09:00)
[2017-02-25] MEDS ORDERED: METO25TA56 PO (13:08)
[2017-02-25] MEDS ORDERED: ACET300T2 PO (13:08)
[2017-02-25] MEDS ORDERED: LIDOCAINE OINT TOP (13:23)
== END 2017-02-02 19:30 | disposition home or self-care (01) ==
LOC: ENRESERVDT → ENRESERVTM → EDBD 11:39 → C.EDB 11:41 → C.2E 13:47
PROVIDERS: ADMIT Internal Medicine; ATTEND Internal Medicine
DX: R07.89 Other chest pain (principal); J45.909 Unspecified asthma, uncomplicated; E11.9 Type 2 diabetes mellitus without complications; K21.9 Gastro-esophageal reflux disease without esophagitis; E03.9 Hypothyroidism, unspecified; I34.1 Nonrheumatic mitral (valve) prolapse; I10 Essential (primary) hypertension; E66.9 Obesity, unspecified; G47.33 Obstructive sleep apnea (adult) (pediatric); G89.4 Chronic pain syndrome; E78.5 Hyperlipidemia, unspecified; G50.0 Trigeminal neuralgia; Z90.710 Acquired absence of both cervix and uterus; Z87.891 Personal history of nicotine dependence; Z99.81 Dependence on supplemental oxygen; Z79.4 Long term (current) use of insulin; Z83.3 Family history of diabetes mellitus; Z82.3 Family history of stroke; Z82.49 Family history of ischemic heart disease and other diseases of the circulatory system

== ENCOUNTER → 2017-02-25 | Outpatient (CLI) | payer OTHER ==
[~2017-02-25] MED LIST changes: +ACET300T2 PO; +ALBINSX NEB; +ALBU18002 INH; -ALBU1AER9 INH; +CYCL0.052 OP; -ESTR1CRE TOP; -LEVO75TA5 PO; +LIDOCAINE OINT TOP; +METO25TA56 PO; +ONDA4TAB9 PO; +PRMVC TOP; -RABE20TA5 PO; -RSTOPS OP; -SIME125C11 PO; +SIME1CAP28 PO; +TPRSR25 PO; +[UNRECOGNIZED DRUG - REMARK] OPB
== END | disposition home or self-care (01) ==
LOC: C.LABSPEC 09:27
PROVIDERS: ATTEND Nurse Practitioner Family
DX: R19.7 Diarrhea, unspecified (principal); R10.12 Left upper quadrant pain

== ENCOUNTER → 2017-03-01 | Day surgery (SDC) | payer OTHER ==
[2017-02-25 13:12] VITALS: Ht 167.6 cm; Wt 100.0 kg
[~2017-03-01] VITALS: Ht 167.6 cm; Wt 100.0 kg
[~2017-03-01] MED LIST changes: -ACET-749 PO; +ATROPINE SULFATE 0.1 MG/ML 5ML SYR IV PRN; +EpHEDrine SULFATE INJ 50 MG/ML AMP IV PRN; +FENTANYL CITRATE INJ 50 MCG/1 ML 2 ML VIAL ONE; +LIDOCAINE HCL 2% 2 ML VIAL (20MG/ML) ONE; +PROPOFOL IV EMULSION 10 MG/ML 20 ML VIAL IV ONE; +SODIUM CHLORIDE 0.9% 500ML 500 ML IV ONE; -TPRSR25 PO
--- NOTE | 2017-03-01 08:47 | Endo History and Physical ---
History & Physical Date of Service: Mar 01, 2017. Chief Complaint: abdominal pain,reflux,gastric nodule Referring Physician: Dr.Timothy Ba History of Present Illness Patient with years of abdominal pain and epigastric burning. Past Medical History Diabetes, Arthritis, Asthma, Reflux, COPD, Thyroid Disease, Depression Past Surgical History Hx Cardiac Surgery: Yes (HEART CATH, NO STENTS) Hx Internal Defibrillator: No Hx Pacemaker: No Hx Abdominal Surgery: Yes (PARTIAL HYSTER, LT INGUINAL HERNIA REPAIR X2 WITH MESH) Hx of Implantable Prosthesis: No Hx Post-Op Nausea and Vomiting: No Hx Cancer Surgery: No Hx Thoracic Surgery: No Hx Orthopedic: Yes (LT ULNAR REPOSITION, LT GANGLION CYSTECTOMY) Hx Urinary Tract Surgery: Yes (BLADDER TACK) Family History Colon CA, IBD Social History Smoking Status: Former Smoker Hx Substance Use: Yes (SEE MED LIST) Hx Alcohol Use: No Allergies Coded Allergies: Meloxicam (Verified Allergy, Severe, RASH/WHEEZING/ITCHING/ "FELT I COULDN 'T BREATH", 02/25/17) Niacin (Verified Allergy, Severe, "WHEEZING/RASH/RUSHED TO ER AND GIVEN SHOT", 02/25/17) Silicone (Verified Allergy, Severe, FACIAL SWELLING AND WHEEZING, 02/25/17) Doxycycline (Verified Allergy, Mild, N/V AND PAIN, 02/25/17) Latex (Verified Allergy, Mild, SLIGHT WHEEZING, 02/25/17) Adhesives (Verified Allergy, Unknown, BANDAIDS-RED RASH, 02/25/17) Duloxetine (Verified Adverse Reaction, Intermediate, JOINT PAIN AND ELEVATED BLOOD SUGAR, 02/25/17) Tetracycline (Verified Adverse Reaction, Intermediate, VOMIT/PASS OUT-PT DENIES, 02/25/17) Aspirin (Verified Adverse Reaction, Mild, nausea, vomitting, abd pain, 02/25) Buspirone (Verified Adverse Reaction, Mild, N/V/PAIN-PT DENIES, 02/25/17) NSAIDs (Verified Adverse Reaction, Mild, GI UPSET/VOMITING, 02/25/17) Pregabalin (Verified Adverse Reaction, Mild, PAIN AND NAUSEA, 02/25/17) Rosuvastatin (Verified Adverse Reaction, Mild, JOINT PAIN VOMIT, 02/25/17) Simvastatin (Verified Adverse Reaction, Mild, JOINT PAIN, 02/25/17) Statins (Verified Adverse Reaction, Unknown, MYALGIA AND JOINT PAINS, ) Current Medications Reported Home Medications Medications Dose Route/Sig Max Daily Dose Days Date Category Dose Instructions [Lidocaine Oint] 1 Dose TOP UD PRN 02/25/17 Reported Lopressor (Metoprolol Tartrate) 25 Mg Tab 0.5 Tab PO BID PRN 02/25/17 Reported Tylenol W/Codeine #3 (Acetaminophen W/ Codeine) 1 Tab Tab 1 Tab PO BID-TID 02/25/17 Reported Albuterol Sulfate (Albuterol Sulf) 2.5 Mg/3 Ml Nebu 1 Vial NEB Q6 PRN 01/31/17 Reported [Unknown Eyedrops] 1 Drop OPB 2-3 TIMES PRN 01/31/17 Reported Ondansetron HCl (Ondansetron) 4 Mg Tab 4 Mg PO Q6 PRN 01/31/17 Reported Restasis (Cyclosporine (Ophth)) 0.05 % Emu 1 Drop OP BID PRN 01/31/17 Reported Premarin (Estrogens, Conjugated) 14 Appln/30 Gm Cr 0.5 Gm TOP QAM PRN 01/31/17 Reported Simethicone 125 Mg Cap 125 Mg PO QID PRN 01/31/17 Reported Proair Respiclick (Albuterol Sulfate) 108 Mcg/Act Aer 2 Puffs INH Q4 PRN 01/31/17 Reported Miralax (Polyethylene) 17 Gm Pow 17 Gm PO QAM 01/31/17 Reported Levothyroxine Sodium 50 Mcg Tab 1 Tab PO QAM 07/24/16 Reported Humalog Kwikpen (Insulin Lispro (Human)) 100 Unit/Ml Inj 24 Units SQ AC 07/24/16 Reported Klonopin (Clonazepam) 0.5 Mg Tab 1 Tab PO BID PRN 05/29/16 Reported Lacri-Lube Sop Oph Oint (Artificial Tears) Oint 0.25-0.5 Inch OP HS 12/11/15 Reported TO THE AFFECTED EYE UP TO QID PRN Oxygen Gas 2 Liters NA PRN 08/01/15 Reported Pyridium (Phenazopyridine HCl) 200 Mg Tab 200 Mg PO TID PRN 08/01/15 Reported Advair Diskus 250/50 60 Dose (Fluticasone Prop/Salmeterol) 1 Ea Aerp 1 Puff INH BID 7/1/15 Reported Duoneb (Ipratropium-Albuterol) 3 Ml Nebu 1 Treatment INH QID PRN 06/06/14 Reported Multivitamin (Multivitamins) Tab 1 Tab PO QPM 04/14/09 Reported Vital Signs Weight (Kilograms): 100 Height (Feet): 5 Height (Inches): 6 Date Time Temp Pulse Resp B/P (MAP) Pulse Ox O2 Delivery O2 Flow Rate FiO2 03/01/17 08:20 37 76 20 139/63 94 Room Air Physical Exam General Appearance: no apparent distress Respiratory/Chest: Auscultation: breath sounds normal Cardiovascular: Heart Auscultation: RRR Abdomen: Inspection & Palpation: soft Liver: non-tender Assessment and Plan stable for EGD
--- NOTE | 2017-03-01 08:58 | Discharge Instructions ---
Endoscopy Patient Instructions Date / Procedure(s) Performed Mar 01, 2017. EGD Allergy Information Coded Allergies: Meloxicam (Verified Allergy, Severe, RASH/WHEEZING/ITCHING/ "FELT I COULDN 'T BREATH", 02/25/17) Niacin (Verified Allergy, Severe, "WHEEZING/RASH/RUSHED TO ER AND GIVEN SHOT", 02/25/17) Silicone (Verified Allergy, Severe, FACIAL SWELLING AND WHEEZING, 02/25/17) Doxycycline (Verified Allergy, Mild, N/V AND PAIN, 02/25/17) Latex (Verified Allergy, Mild, SLIGHT WHEEZING, 02/25/17) Adhesives (Verified Allergy, Unknown, BANDAIDS-RED RASH, 02/25/17) Duloxetine (Verified Adverse Reaction, Intermediate, JOINT PAIN AND ELEVATED BLOOD SUGAR, 02/25/17) Tetracycline (Verified Adverse Reaction, Intermediate, VOMIT/PASS OUT-PT DENIES, 02/25/17) Aspirin (Verified Adverse Reaction, Mild, nausea, vomitting, abd pain, 02/25) Buspirone (Verified Adverse Reaction, Mild, N/V/PAIN-PT DENIES, 02/25/17) NSAIDs (Verified Adverse Reaction, Mild, GI UPSET/VOMITING, 02/25/17) Pregabalin (Verified Adverse Reaction, Mild, PAIN AND NAUSEA, 02/25/17) Rosuvastatin (Verified Adverse Reaction, Mild, JOINT PAIN VOMIT, 02/25/17) Simvastatin (Verified Adverse Reaction, Mild, JOINT PAIN, 02/25/17) Statins (Verified Adverse Reaction, Unknown, MYALGIA AND JOINT PAINS, ) Discharge Date / Findings Mar 01, 2017. Normal study Provider Instructions Activity Restrictions - No exercising or heavy lifting for 24 hours. - Do not drink alcohol the day of the procedure. - Do not drive a car or operate machinery until the day after the procedure. - Do not make any important decisions or sign important papers in 24 hours after the procedure. Following Day: - Return to full activity which may include returning to work/school. Diet Start your diet with liquids and light foods (jello, soup, juice, toast). Then eat your usual diet if not nauseated. Treatment For Common After Affects For mild abdominal pain, bloating, or excessive gas: - Rest - Eat lightly - Lie on right side Follow-Up Information Follow-up with Dr.Timothy Ba as scheduled Anesthesia Information What You Should Know You have had a procedure that required some medicine to reduce anxiety and discomfort. This treatment is called moderate sedation. After receiving the treatment, you may be sleepy, but you will be able to breathe on your own. The effects of the treatment may last for several hours. Follow these instructions along with Activity/Diet recommendations noted above: * Do NOT do anything where dizziness or clumsiness would be dangerous. * Rest quietly at home today, then you can be up and about tomorrow. * Have a responsible person stay with you the rest of today. * You may have had an I.V. today. If so, you may take the dressing off later today. Recommendations Call your doctor if: * Trouble breathing * Continuous vomiting for more than 24 hours * Temperature above 101 degrees * Severe abdominal pain or bloating * Pain not relieved by pain medicine ordered * There is increased drainage or redness from any incision * A large amount of rectal bleeding greater than 2-3 tablespoons. (If you had a polyp/s removed or have hemorrhoids, a small amount of blood - from the rectum is to be expected.) * You have any unanswered questions or concerns. IN THE EVENT OF A SERIOUS EMERGENCY, GO TO THE NEAREST EMERGENCY ROOM Your discharge instructions were prepared by provider Demarco Echeverria. Patient Instructions Signature Page Grisel Springer Patient (or Guardian) Signature/Date: I have read and understand the instructions given to me by my caregivers. Caregiver/RN/Doctor Signature/Date: The above-named patient and/or guardian has received patient instructions on this date. + Original Patient Signature Page (only) stays with chart. Please make copy for patient.
--- NOTE | 2017-03-01 09:10 | GI REPORT ---
Procedure Date: 03/01/2017 8:42 AM Procedure: Upper GI endoscopy Indications: Epigastric abdominal pain, Abdominal bloating Medicines: See the Anesthesia note for documentation of the administered medications Complications: No immediate complications. Estimated Blood Loss: Estimated blood loss was minimal. Procedure: Pre-Anesthesia Assessment: - Prior to the procedure, a History and Physical was performed, and patient medications, allergies and sensitivities were reviewed. The patient's tolerance of previous anesthesia was reviewed. - The risks and benefits of the procedure and the sedation options and risks were discussed with the patient. All questions were answered and informed consent was obtained. - Patient identification and proposed procedure were verified prior to the procedure by the physician and the nurse. The procedure was verified in the pre-procedure area. - Pre-procedure physical examination revealed no contraindications to sedation. - After reviewing the risks and benefits, the patient was deemed in satisfactory condition to undergo the procedure. After obtaining informed consent, the endoscope was passed under direct vision. Throughout the procedure, the patient's blood pressure, pulse, and oxygen saturations were monitored continuously. The scope was introduced through the mouth, and advanced to the fourth part of the duodenum. Small bowel enteroscopy was deemed necessary. The upper GI endoscopy was accomplished without difficulty. The patient tolerated the procedure well. Findings: The esophagus was normal. A single 10 mm submucosal papule (nodule) was found in the gastric body. The 4th part of the duodenum was normal. Biopsies for histology were taken with a cold forceps for evaluation of celiac disease. Verification of patient identification for the specimen was done by the physician and nurse using the patient's name and medical record number. Estimated blood loss was minimal. The cardia and gastric fundus were normal on retroflexion. Impression: - Normal esophagus. - No hiatal hernia seen. - A single submucosal papule (nodule) found in the stomach. Previously noted by Dr. Chairez last year. - No gastric erythema seen. - Normal 4th part of the duodenum. Biopsied. Recommendation: - Await pathology results. - Follow up with Dr. Chairez about need for EUS. - Discharge patient to home. Demarco Echeverria M.D. Demarco Echeverria MD 03/01/2017 9:09:16 AM This report has been signed electronically. Note Initiated On: 03/01/2017 8:42 AM I attest to the content of the Intraoperative Record and orders documented therein, exceptions below
[2017-03-01 09:19] VITALS: BP 117/94; PULSE 78; O2SAT 98
--- NOTE | 2017-03-01 09:27 | Anesthesiology Progress Note ---
Anesthesia Post Op Note Date & Time Mar 01, 2017 at 09:27 Vital Signs Pain Intensity: 8 Vital Signs Past 12 Hours Date Time Temp Pulse Resp B/P (MAP) Pulse Ox O2 Delivery O2 Flow Rate FiO2 03/01/17 09:19 78 20 117/94 98 Room Air 03/01/17 09:03 72 20 126/86 94 Room Air 03/01/17 08:20 37 76 20 139/63 94 Room Air Notes Mental Status: alert / awake / arousable, participated in evaluation Pt Amnestic to Procedure: Yes Nausea / Vomiting: adequately controlled Pain: adequately controlled Airway Patency, RR, SpO2: stable & adequate BP & HR: stable & adequate Hydration State: stable & adequate Anesthetic Complications: no major complications apparent
== END | disposition home or self-care (01) ==
LOC: C.GI 07:56
PROVIDERS: ATTEND Internal Medicine Gastroenterology
DX: R10.13 Epigastric pain (principal); R14.0 Abdominal distension (gaseous); K21.9 Gastro-esophageal reflux disease without esophagitis; K31.89 Other diseases of stomach and duodenum; E11.9 Type 2 diabetes mellitus without complications; M19.90 Unspecified osteoarthritis, unspecified site; J44.9 Chronic obstructive pulmonary disease, unspecified; F32.9 Major depressive disorder, single episode, unspecified; Z87.891 Personal history of nicotine dependence; Z90.710 Acquired absence of both cervix and uterus; Z80.0 Family history of malignant neoplasm of digestive organs